=== PATIENT | female | born 1965 | race Caucasian/White ===

== ENCOUNTER → 2018-08-10 12:17 | Outpatient (CLI) | payer OTHER, MEDICAID, SELFPAY ==
--- NOTE | 2018-08-10 | DI.US.S_ITS ---
PROCEDURE: US PELVIC COMPLETE INDICATIONS: FIBROIDS TECHNIQUE: Real-time scanning was performed of the pelvic organs, with image documentation. Additional endovaginal scanning was necessary due to incomplete visualization of the adnexal and endometrial structures by transabdominal scanning. COMPARISON: None. FINDINGS: Transabdominal scanning: Limited scanning through the kidneys shows no hydronephrosis. No pathologic free abdominal or pelvic fluid. Endovaginal scanning: Uterus: Uterus is normal in size at 11.2 x 8.4 x 6.7 cm. The endometrial complex is not well visualized do to multiple uterine fibroids. Size Type Location Fibroid #1: 4.9 x 5.5 x 5.0 cm, intramural, anterior midline Fibroid #2: 1.3 x 1.1 x 1.8 cm, intramural, anterior midline Fibroid #3: 2.6 x 1 x 2.2 cm, intramural, posterior midline Ovaries: Ovaries are normal in size and echotexture. Right ovary measures 2.9 x 1.9 x 2.0 cm. Left ovary measures 2.6 x 1.1 x 1.0 cm. IMPRESSION: 1. Multiple uterine fibroids as described above. 2. Endometrium not well-seen. 3. Normal ovaries. Dictated by: Daniela Polanco M.D. on 08/10/2018 at 17:54 Approved by: Daniela Polanco M.D. on 08/10/2018 at 17:59
== END ==
PROVIDERS: Visit Provider Nurse Practitioner Family
DX: D25.1 Intramural leiomyoma of uterus (principal)
CPT/HCPCS: 76830; 76856

== ENCOUNTER → 2020-01-10 12:27 | Outpatient (CLI) | payer OTHER, MEDICAID, SELFPAY ==
--- NOTE | 2020-01-10 | DI.MG.S_ITS ---
BILATERAL DIGITAL DIAGNOSTIC MAMMOGRAM 3D/2D: 01/10/2020 CLINICAL: Breast cancer. Comparison is made to exam dated: 04/28/2019 mammogram - [facility]. There are scattered fibroglandular elements in both breasts. There are benign post operative findings in the left breast. No significant masses, calcifications, or other findings are seen in either breast. IMPRESSION: INCOMPLETE: NEEDS ADDITIONAL IMAGING EVALUATION There is no mammographic abnormality seen in the left breast to correspond with the pain, however, ultrasound of the area of pain is recommended. This exam was interpreted at Station ID: [id number]. NOTE: For mammograms, a report in lay terms will be sent to the patient. Approximately 15% of breast malignancies will not be visualized mammographically. In the management of a palpable breast mass, a negative mammogram must not discourage biopsy of a clinically suspicious lesion. Electronically Signed By: Marylu Linares M.D. lk/:01/15/2020 10:54:11 letter sent: Need Ultrasound ACR BI-RADS Category 0: Incomplete 3340F
== END ==
PROVIDERS: PCP Family Medicine; Referring Provider Family Medicine; Visit Provider Family Medicine
DX: R92.8 Other abnormal and inconclusive findings on diagnostic imaging of breast (principal); C50.912 Malignant neoplasm of unspecified site of left female breast
CPT/HCPCS: 77066; G0279

== ENCOUNTER → 2021-01-10 08:50 | Outpatient (CLI) | payer OTHER, MEDICAID, SELFPAY ==
--- NOTE | 2021-01-10 | DI.US.S_ITS ---
PROCEDURE: US PELVIC COMPLETE INDICATIONS: LEIOMYOMA TECHNIQUE: Real-time scanning was performed of the pelvic organs, with image documentation. Additional endovaginal scanning was necessary due to incomplete visualization of the adnexal and endometrial structures by transabdominal scanning. COMPARISON: [facility], CT, CT [place], 07/10/2019, 10:44. [facility], US, US PELVIC COMPLETE, 08/10/2018, 12:56. FINDINGS: Uterus: Uterus is enlarged in size at 9.4 x 6.4 x 4.6 cm. The endometrium is not well visualized. 3 intramural fibroids redemonstrated, not significantly changed with the largest measuring 3.8 x 4.5 x 3.9 cm compared to 4.9 x 5.5 Ovaries: Normal ovaries measuring 3.1 x 1.2 x 1.2 cm on the right and 2.7 x 1.4 x 1.1 cm on the left. No adnexal masses seen. Other: No pathologic free abdominal or pelvic fluid. IMPRESSION: No significant interval change in 3 intramural fibroids with the largest measuring up to 4.5 cm. Dictated by: Tex Garner [facility] Interpreted: Josef Kumar MD on 01/10/2021 at 9:52 Transcribed by: CATHERINE on 01/10/2021 at 9:56 Approved by: Josef Kumar M.D. on 01/12/2021 at 15:20
--- NOTE | 2021-01-10 | DI.MG.S_ITS ---
BILATERAL DIGITAL SCREENING MAMMOGRAM 3D/2D WITH CAD POST LUMPECTOMY: 01/10/2021 CLINICAL: Routine screening. Personal history of left breast cancer. Comparison is made to exams dated: 01/10/2020 mammogram - [facility], 04/28/2019 mammogram, 04/28/2019 mammogram, and 03/17/2018 mammogram - [facility]. The tissue of both breasts is heterogeneously dense. This may lower the sensitivity of mammography. Current study was also evaluated with a Computer Aided Detection (CAD) system. There are benign calcifications in both breasts. There also is a biopsy clip in the right breast. Additionally, there are benign post operative findings in the left breast. No significant masses, calcifications, or other findings are seen in either breast. There has been no significant interval change. IMPRESSION: BENIGN There is no mammographic evidence of malignancy. A 1 year screening mammogram is recommended. This exam was interpreted at Station ID: [id number]. NOTE: For mammograms, a report in lay terms will be sent to the patient. Approximately 15% of breast malignancies will not be visualized mammographically. In the management of a palpable breast mass, a negative mammogram must not discourage biopsy of a clinically suspicious lesion. Electronically Signed By: Dee Dee [email or web address]/vale:01/10/2021 12:35:56 letter sent: Normal Exam ACR BI-RADS Category 2: Benign Finding(s) 3342F
== END ==
PROVIDERS: PCP Family Medicine; Referring Provider Family Medicine; Visit Provider Family Medicine
DX: Z12.31 Encounter for screening mammogram for malignant neoplasm of breast (principal); D25.1 Intramural leiomyoma of uterus; Z85.3 Personal history of malignant neoplasm of breast
CPT/HCPCS: 76830; 76856; 77063; 77067

== ENCOUNTER → 2021-10-06 14:34 | Outpatient (CLI) | payer OTHER, MEDICAID, SELFPAY ==
[2021-10-09 23:10] LABS: CCP Antibodies IgG/IgA 2 units (0-19)
== END ==
PROVIDERS: PCP Family Medicine; Visit Provider Family Medicine
DX: M05.9 Rheumatoid arthritis with rheumatoid factor, unspecified (principal)
CPT/HCPCS: 86200

== ENCOUNTER 2023-08-10 13:00 | Outpatient (RCR) | payer OTHER, MEDICAID, SELFPAY ==
--- NOTE | 2023-03-25 17:12 | PT.OIE ---
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) Past Medical History (Last Updated 02/23/21 @ 21:12 by Tory Chaparro) Breast cancer CHI (closed head injury) H/O actinic keratosis H/O acute bronchitis HSV (herpes simplex virus) infection Migraines (~2018) PTSD (post-traumatic stress disorder) Puncture wound without foreign body of right forearm, initial encounter Past Surgical History History of tonsillectomy Visit Care Team Role Provider Type Chris Bergman MD Attending Provider Physician Family Provider Primary Care Provider Referring Provider Specialty: Family Practice Address: [address], [facility] Email: [email or web address] [facility] Initial Evaluation PT-OP-A Visit Information Start: 03/16/23 16:40 Freq: Status: Active Protocol: Document 03/25/23 12:53 SAK (Rec: 03/25/23 15:16 SAK [id number]) Out-Patient Physical Therapy Visit Information Visit Information Visit Type Initial Evaluation Visit Start Time 01:01 Visit Stop Time 14:31 Visit Number 1 Evaluation Information Evaluation Date 03/25/23 PT-OP-B Current Condition Start: 03/16/23 16:40 Freq: Status: Active Protocol: Document 03/25/23 12:53 SAK (Rec: 03/25/23 15:16 SAK [id number]) Current Condition History of Current Condition Onset Date 2019 Current Complaints swelling, decreased ROM History of Current Condition She had breast cancer (left breast), diagnosed 04/2019. Partial mastectomy at that time, cancer came back, had full mastectomy August 2022. 3 lymph nodes removed. Had radiation first time. No chemo. Immediately noticed swelling after surgery. In November stopped and got a bra and prosthesis, in time it took to drive to [place] had increased swelling and pain left breast. Has tried to wear Body glove shirt shirt , anywhere where there is pressure she gets ridge. 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 Can't lay on left side, has some body dysmorphia. Feeling puffy in breast, entire arm, upper back . If I mess with arm and upper back I suffer itchy and tingling, has numbness posterior left UE. Sometimes very warm and itchy, especially at night. Had 2 sessions of PT; given info for desensitiizaion and ROM. Doing some self massage. Is trying to work on densitization. Works in [employer], doesn't appear to increase her swelling but laying around does. Prior Treatments and Tests Mastectomy [facility] August 2022, [place] in 2019, radiation at [facility]. Future Testing and Treatments Planned Back to surgeon in August 2023 PT-OP-C Subjective Start: 03/16/23 16:40 Freq: Status: Active Protocol: Document 03/25/23 12:53 SAK (Rec: 03/25/23 16:44 [facility] [id number]) Patient Questionnaires Lymphedema Life Impact Score Lymphedema Score 38 OP-PT Pain Assessment Pain Assessment Grid Paper Pain Assessment Grid Completed Yes PT-OP-J Posture/Palpation/Skin Start: 03/16/23 16:40 Freq: Status: Active Protocol: Document 03/25/23 12:53 SAK (Rec: 03/25/23 16:57 [facility] [id number]) Palpation Assessment Location left axilla Palpation Details axillary cording incision Palpation Findings Soft Tissue Tightness,Trigger Point posterior upper arm Palpation Findings Edema Palpation Details numbness left lateral thorax Palpation Findings Edema,Tenderness PT-OP-K Range of Motion Start: 03/16/23 16:40 Freq: Status: Active Protocol: Document 03/25/23 12:53 SAK (Rec: 03/25/23 16:57 [facility] [id number]) Shoulder Goniometric Range of Motion Shoulder Left Active Shoulder ROM WFL No Flexion 145 Extension 25 Abduction 140 Horizontal Abduction 90 External Rotation at 0 degrees Abduction 50 Internal Rotation Behind Back (text) T8 Right Active Shoulder ROM WFL Yes PT-OP-N Lymphedema Start: 03/16/23 16:40 Freq: Status: Active Protocol: Document 03/25/23 12:53 SAK (Rec: 03/25/23 15:16 [facility] [id number]) Lymphedema Measurements Upper Extremity Circumference Measurements Left Affected MCP 17.5 cm Dorsum of Hand 18 cm Wrist 15.4 cm 5 cm From Wrist Crease 16.6 cm 10 cm From Wrist Crease 18.4 cm 15 cm From Wrist Crease 20.4 cm 20 cm From Wrist Crease 22.8 cm 25 cm From Wrist Crease 23.5 cm 30 cm From Wrist Crease 24.7 cm 35 cm From Wrist Crease 28.7 cm 40 cm From Wrist Crease 31.7 cm 45 cm From Wrist Crease 33.2 cm Right Affected MCP 17.8 cm Dorsum of Hand 18.4 cm Wrist 15.2 cm 5 cm From Wrist Crease 16.4 cm 10 cm From Wrist Crease 18.5 cm 15 cm From Wrist Crease 20.9 cm 20 cm From Wrist Crease 23 cm 25 cm From Wrist Crease 24.8 cm 30 cm From Wrist Crease 28.1 cm 35 cm From Wrist Crease 30.6 cm 40 cm From Wrist Crease 32.3 cm Elbow Joint 23 cm - subaxillary:93.4 incision line:96.1 PT-OP-Q Treatments Start: 03/16/23 16:40 Freq: Status: Active Protocol: Document 03/25/23 12:53 [facility] (Rec: 03/25/23 16:57 [facility] [id number]) Lymphedema Treatment Manual Lymphatic Drainage Location for left UE and thorax lymphedema Duration 30 Comments instruction in technique for self massage Lymphedema Wrapping Materials kinesiotape trial Other 2 fan strips: 1 base left supraclavicular, with strips into left proximal UE and 1 with base toward groin and strips along lateral thorax Sequential Lymphedema Exercises Comments issued handout instructed in open book, will need to issue handout next session Patient Education Lymphedema Pathology educated, posters used Lymphedema Prevention educated, issued HO Lymphedema Precautions educated, issued HO Compression Garments discussed and shown some options Self Manual Lymphatic Drainage educated, issued HO Sequential Lymphedema Exercises issued HO, instructed in open book Other Shown options for compression; compression bras (issued for trial at home), shown glove ( poor fit) and UE compression opetions. Encouraged patient to watch [facility] videos for further education in self- care for lymphedema; all aspects PT-OP-T Assessment and Plan Start: 03/16/23 16:40 Freq: Status: Active Protocol: Document 03/25/23 12:53 [facility] (Rec: 03/25/23 15:16 [facility] [id number]) Physical Therapy Assessment Rehab Potential Rehabilitation Potential Good Evaluation Complexity Number of Personal Factors/Comorbidities 1-2 Number of Body Systems Impaired 3 Clinical Presentation at Evaluation Evolving Impairments Impairments Edema,Pain,ROM,Soft Tissue Mobility Goals Four Impairment axillary cording left axilla Impairment affects left UE function Longterm Goal (LTG) eliminate axillary cording left axilla for improved left UE function and lymphatic flow LTG Duration 06/24/23 Three Impairment lymphedema life impact scale 38% Short Term Goal (STG) decrease lymphedema life impact scale to no greater than 25% STG Duration 05/06/23 Car Mover Goal (LTG) Decrease lymphedema life impact scale to no greater than 15% as measure of improve ability to self manage and improved quality of life LTG Duration 06/23/24 Two Impairment decreased ROM left shoulder Short Term Goal (STG) patient to be instructed in ROM ex for left UE STG Duration 04/30/23 Car Mover Goal (LTG) Left shoulder ROM WNL LTG Duration 06/24/23 One Impairment lymphedema left UE, lateral thorax and upper back Short Term Goal (STG) Patient to be instructed in all aspects of lymphedema care to include skin care, manual lymphatic drainage, lymphedema exercises and compression STG Duration 05/06/23 Car Mover Goal (LTG) decrease lymphedema to stable level (no increase or decrease in circumference greater than 1 cm over the course of 1 week), patient to be independent with all aspects of lymphedema care, and obtain appropriate compression garments LTG Duration 06/24/23 Assessment Summary Assessment Patient presents to PT after left partial mastectomy 2018, followed by full mastectomy with 2 lymph nodes removed per her report in August 2022. States she started to experience lymphedema pretty much immediately after the surgery in 2022, but has not received any treatment. 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 She does some range of motion exercises left UE. She has lymphedema in her left upper arm (reports extends into her forearm and hand at times) as well as lateral and posterior thoracic region but no increase in warmth. She has axillary cording in her left axilla. She has tried wearing compression shirt but felt it caused worsening of the edema and her skin is very sensitive to touch and pressure. Today's treatment consisted of instruction in all aspects of lymphedema care , abbreviated manual lymphatic drainage was applied, educational handouts issued regarding self lymphatic drainage, exercises, skin care, and compression and local and online resources. She was issued 2 trial compression bras to try at home. Kinesiotape trial done on lateral thorax and upper arm for edema reduction. POC was discussed and patient was in agreement Physical Therapy Plan Frequency and Duration Frequency of Treatment 20 visits Duration of treatment (weeks) 12 Plan of Care Start Date 03/25/23 Plan of Care End Date 06/24/23 Therapeutic Interventions Therapeutic Interventions Home Exercise Program, Lymphedema Management,Manual Therapy,Patient/Caregiver Education,Self-Care/Home Management,Soft Tissue Mobilization,Therapeutic Exercises Modalities Vasopneumatic Devices Next Visit Focus/Plan Next Note Type Treatment Note
--- NOTE | 2023-03-25 17:12 | PT.OPPOC ---
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) Visit Care Team Role Provider Type Chris Bergman MD Attending Provider Physician Family Provider Primary Care Provider Referring Provider Specialty: Family Practice Address: [address], [address] Email: [email or web address] Plan Of Care PT-OP-T Assessment and Plan Start: 03/16/23 16:40 Freq: Status: Active Protocol: Document 03/25/23 12:53 [facility]AK (Rec: 03/25/23 15:16 [facility] [id number]) Physical Therapy Assessment Rehab Potential Rehabilitation Potential Good Evaluation Complexity Number of Personal Factors/Comorbidities 1-2 Number of Body Systems Impaired 3 Clinical Presentation at Evaluation Evolving Impairments Impairments Edema,Pain,ROM,Soft Tissue Mobility Goals Four Impairment axillary cording left axilla Impairment affects left UE function Mandarin Teacher Goal (LTG) eliminate axillary cording left axilla for improved left UE function and lymphatic flow LTG Duration 06/24/23 Three Impairment lymphedema life impact scale 38% Short Term Goal (STG) decrease lymphedema life impact scale to no greater than 25% STG Duration 05/06/23 Mandarin Teacher Goal (LTG) Decrease lymphedema life impact scale to no greater than 15% as measure of improve ability to self manage and improved quality of life LTG Duration 06/23/24 Two Impairment decreased ROM left shoulder Short Term Goal (STG) patient to be instructed in ROM ex for left UE STG Duration 04/30/23 Mandarin Teacher Goal (LTG) Left shoulder ROM WNL LTG Duration 06/24/23 One Impairment lymphedema left UE, lateral thorax and upper back Short Term Goal (STG) Patient to be instructed in all aspects of lymphedema care to include skin care, manual lymphatic drainage, lymphedema exercises and compression STG Duration 05/06/23 Prison Goal (LTG) decrease lymphedema to stable level (no increase or decrease in circumference greater than 1 cm over the course of 1 week), patient to be independent with all aspects of lymphedema care, and obtain appropriate compression garments LTG Duration 06/24/23 Assessment Summary Assessment Patient presents to PT after left partial mastectomy 2018, followed by full mastectomy with 2 lymph nodes removed per her report in August 2022. States she started to experience lymphedema pretty much immediately after the surgery in 2022, but has not received any treatment. 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 She does some range of motion exercises left UE. She has lymphedema in her left upper arm (reports extends into her forearm and hand at times) as well as lateral and posterior thoracic region but no increase in warmth. She has axillary cording in her left axilla. She has tried wearing compression shirt but felt it caused worsening of the edema and her skin is very sensitive to touch and pressure. Today's treatment consisted of instruction in all aspects of lymphedema care , abbreviated manual lymphatic drainage was applied, educational handouts issued regarding self lymphatic drainage, exercises, skin care, and compression and local and online resources. She was issued 2 trial compression bras to try at home. Kinesiotape trial done on lateral thorax and upper arm for edema reduction. POC was discussed and patient was in agreement Physical Therapy Plan Frequency and Duration Frequency of Treatment 20 visits Duration of treatment (weeks) 12 Plan of Care Start Date 03/25/23 Plan of Care End Date 06/24/23 Therapeutic Interventions Therapeutic Interventions Home Exercise Program, Lymphedema Management,Manual Therapy,Patient/Caregiver Education,Self-Care/Home Management,Soft Tissue Mobilization,Therapeutic Exercises Modalities Vasopneumatic Devices Next Visit Focus/Plan Next Note Type Treatment Note Plan of Care Dates Plan of Care Start Date 03/25/23 Plan of Care End Date 06/24/23 Electronically Signed by: Lavonne Uriostegui, PT 03/25/23 [id number] If you are in agreement with this Plan of Care, please return a signed and dated copy. I have reviewed this Plan of Care and certify that the skilled therapy services above are required to meet the patient?s needs. Physician Signature Date Printed Name and Credentials Clinical Instructor Signature Printed Name and Credentials
--- NOTE | 2023-03-29 16:09 | PT.OTN ---
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) Physical Therapy Treatment Note PT-OP-A Visit Information Start: 03/16/23 16:40 Freq: Status: Active Protocol: Document 03/29/23 14:49 SAK (Rec: 03/29/23 16:07 [facility] [id number]) Out-Patient Physical Therapy Visit Information Visit Information Visit Type Treatment Note Visit Start Time 14:30 Visit Stop Time 15:55 Visit Number 2 Evaluation Information Evaluation Date 03/25/23 PT-OP-B Current Condition Start: 03/16/23 16:40 Freq: Status: Active Protocol: Document 03/29/23 14:49 SAK (Rec: 03/29/23 16:07 [facility] [id number]) Current Condition History of Current Condition Onset Date 2019 Current Complaints swelling, decreased ROM History of Current Condition She had breast cancer (left breast), diagnosed 04/2019. Partial mastectomy at that time, cancer came back, had full mastectomy August 2022. 3 lymph nodes removed. Had radiation first time. No chemo. Immediately noticed swelling after surgery. In November stopped and got a bra and prosthesis, in time it took to drive to [place] had increased swelling and pain left breast. Has tried to wear Body glove shirt shirt , anywhere where there is pressure she gets ridge. 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 Can't lay on left side, has some body dysmorphia. Feeling puffy in breast, entire arm, upper back . If I mess with arm and upper back I suffer itchy and tingling, has numbness posterior left UE. Sometimes very warm and itchy, especially at night. Had 2 sessions of PT; given info for desensitiizaion and ROM. Doing some self massage. Is trying to work on densitization. Works in [employer] and [employer], doesn't appear to increase her swelling but laying around does. Prior Treatments and Tests Mastectomy [facility] August 2022, [place] in 2019, radiation at [facility]. Future Testing and Treatments Planned Back to surgeon in August 2023 PT-OP-C Subjective Start: 03/16/23 16:40 Freq: Status: Active Protocol: Document 03/29/23 14:49 SAK (Rec: 03/29/23 16:07 [facility] [id number]) OP-PT Subjective Patient Comments Patient Comments Patient reports had difficulty tolerating compression bra due to nerve pain, and irritation. Kinesiotape ok. Wants to try bra again tonight . Receptive to compression bandaging today. PT-OP-J Posture/Palpation/Skin Start: 03/16/23 16:40 Freq: Status: Active Protocol: Document 03/25/23 12:53 SAK (Rec: 03/25/23 16:57 [facility] [id number]) Palpation Assessment Location left axilla Palpation Details axillary cording incision Palpation Findings Soft Tissue Tightness,Trigger Point posterior upper arm Palpation Findings Edema Palpation Details numbness left lateral thorax Palpation Findings Edema,Tenderness PT-OP-K Range of Motion Start: 03/16/23 16:40 Freq: Status: Active Protocol: Document 03/25/23 12:53 SAK (Rec: 03/25/23 16:57 [facility] [id number]) Shoulder Goniometric Range of Motion Shoulder Left Active Shoulder ROM WFL No Flexion 145 Extension 25 Abduction 140 Horizontal Abduction 90 External Rotation at 0 degrees Abduction 50 Internal Rotation Behind Back (text) T8 Right Active Shoulder ROM WFL Yes PT-OP-N Lymphedema Start: 03/16/23 16:40 Freq: Status: Active Protocol: Document 03/29/23 14:49 SAK (Rec: 03/29/23 16:07 [facility] [id number]) Lymphedema Measurements Upper Extremity Circumference Measurements Left Affected MCP 17.6 cm Dorsum of Hand 18.1 cm Wrist 15.2 cm 5 cm From Wrist Crease 16.7 cm 10 cm From Wrist Crease 18.7 cm 15 cm From Wrist Crease 21.4 cm 20 cm From Wrist Crease 23 cm 25 cm From Wrist Crease 24.4 cm 30 cm From Wrist Crease 28 cm 35 cm From Wrist Crease 28.7 cm 40 cm From Wrist Crease 30 cm 45 cm From Wrist Crease 33.2 cm Elbow Joint 23.7 cm Right Affected - 92.7 95.2 PT-OP-Q Treatments Start: 03/16/23 16:40 Freq: Status: Active Protocol: Document 03/29/23 14:49 SAK (Rec: 03/29/23 16:07 [facility] [id number]) Therapeutic Exercises Sitting Exercises pulleys Sitting Exercise Name flexion, scaption Reps/Minutes 10x Lymphedema Treatment Manual Lymphatic Drainage Location for left UE and thorax lymphedema Duration 30 Comments instruction in technique for self massage Lymphedema Wrapping Body Location left UE Materials sizes F Tricofix, Artiflex (2 rolls), Comprilan (6,8,10) Other Cetaphil lotion applied prior to bandaging Sequential Lymphedema Exercises Comments performed per handout, encouraged ex while wearing compression Patient Education Lymphedema Prevention reviewed Self Manual Lymphatic Drainage reviewed Sequential Lymphedema Exercises reviewed PT-OP-T Assessment and Plan Start: 03/16/23 16:40 Freq: Status: Active Protocol: Document 03/29/23 14:49 [facility] (Rec: 03/29/23 16:07 [facility] [id number]) Physical Therapy Assessment Impairments Impairments Edema,Pain,ROM,Soft Tissue Mobility Goals Four Impairment axillary cording left axilla Impairment affects left UE function Radiologic Technologist Chief Goal (LTG) eliminate axillary cording left axilla for improved left UE function and lymphatic flow LTG Duration 06/24/23 Three Impairment lymphedema life impact scale 38% Short Term Goal (STG) decrease lymphedema life impact scale to no greater than 25% STG Duration 05/06/23 Snf Goal (LTG) Decrease lymphedema life impact scale to no greater than 15% as measure of improve ability to self manage and improved quality of life LTG Duration 06/23/24 Two Impairment decreased ROM left shoulder Short Term Goal (STG) patient to be instructed in ROM ex for left UE STG Duration 04/30/23 Snf Goal (LTG) Left shoulder ROM WNL LTG Duration 06/24/23 One Impairment lymphedema left UE, lateral thorax and upper back Short Term Goal (STG) Patient to be instructed in all aspects of lymphedema care to include skin care, manual lymphatic drainage, lymphedema exercises and compression STG Duration 05/06/23 Snf Goal (LTG) decrease lymphedema to stable level (no increase or decrease in circumference greater than 1 cm over the course of 1 week), patient to be independent with all aspects of lymphedema care, and obtain appropriate compression garments LTG Duration 06/24/23 Assessment Summary Assessment Patient compliant to self MLD, did not look further into materials issued. Noted reduction in edema following MLD today, discussion of need to wear compression to maintain any gains. Bandaging applied to patient left UE. Physical Therapy Plan Frequency and Duration Frequency of Treatment 20 visits Duration of treatment (weeks) 12 Plan of Care Start Date 03/25/23 Plan of Care End Date 06/24/23 Therapeutic Interventions Therapeutic Interventions Home Exercise Program, Lymphedema Management,Manual Therapy,Patient/Caregiver Education,Self-Care/Home Management,Soft Tissue Mobilization,Therapeutic Exercises Modalities Vasopneumatic Devices Next Visit Focus/Plan Next Note Type Treatment Note Next Visit Plan ASsess response to today's treatment, continue CLT including skin care, bandaging , exercise, and compression. Patient to have looked at compression options online tonight if possible for further discussion.
--- NOTE | 2023-03-30 16:28 | PT.OTN ---
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) Physical Therapy Treatment Note PT-OP-A Visit Information Start: 03/16/23 16:40 Freq: Status: Active Protocol: Document 03/30/23 16:21 SAK (Rec: 03/30/23 16:28 [facility] [id number]) Out-Patient Physical Therapy Visit Information Visit Information Visit Type Treatment Note Visit Start Time 13:00 Visit Stop Time 13:55 Visit Number 3 PT-OP-B Current Condition Start: 03/16/23 16:40 Freq: Status: Active Protocol: Document 03/29/23 14:49 SAK (Rec: 03/29/23 16:07 [facility] [id number]) Current Condition History of Current Condition Onset Date 2019 Current Complaints swelling, decreased ROM History of Current Condition She had breast cancer (left breast), diagnosed 04/2019. Partial mastectomy at that time, cancer came back, had full mastectomy August 2022. 3 lymph nodes removed. Had radiation first time. No chemo. Immediately noticed swelling after surgery. In November stopped and got a bra and prosthesis, in time it took to drive to [place] had increased swelling and pain left breast. Has tried to wear Body glove shirt shirt , anywhere where there is pressure she gets ridge. 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 Can't lay on left side, has some body dysmorphia. Feeling puffy in breast, entire arm, upper back . If I mess with arm and upper back I suffer itchy and tingling, has numbness posterior left UE. Sometimes very warm and itchy, especially at night. Had 2 sessions of PT; given info for desensitiizaion and ROM. Doing some self massage. Is trying to work on densitization. Works in [employer] and [employer], doesn't appear to increase her swelling but laying around does. Prior Treatments and Tests Mastectomy Wm Freeman August 2022, [place] in 2019, radiation at [facility]. Future Testing and Treatments Planned Back to surgeon in August 2023 PT-OP-C Subjective Start: 03/16/23 16:40 Freq: Status: Active Protocol: Document 03/29/23 14:49 SAK (Rec: 03/29/23 16:07 [facility] [id number]) OP-PT Subjective Patient Comments Patient Comments Patient reports had difficulty tolerating compression bra due to nerve pain, and irritation. Kinesiotape ok. Wants to try bra again tonight . Receptive to compression bandaging today. PT-OP-J Posture/Palpation/Skin Start: 03/16/23 16:40 Freq: Status: Active Protocol: Document 03/25/23 12:53 SAK (Rec: 03/25/23 16:57 [facility] [id number]) Palpation Assessment Location left axilla Palpation Details axillary cording incision Palpation Findings Soft Tissue Tightness,Trigger Point posterior upper arm Palpation Findings Edema Palpation Details numbness left lateral thorax Palpation Findings Edema,Tenderness PT-OP-K Range of Motion Start: 03/16/23 16:40 Freq: Status: Active Protocol: Document 03/25/23 12:53 SAK (Rec: 03/25/23 16:57 [facility] [id number]) Shoulder Goniometric Range of Motion Shoulder Left Active Shoulder ROM WFL No Flexion 145 Extension 25 Abduction 140 Horizontal Abduction 90 External Rotation at 0 degrees Abduction 50 Internal Rotation Behind Back (text) T8 Right Active Shoulder ROM WFL Yes PT-OP-N Lymphedema Start: 03/16/23 16:40 Freq: Status: Active Protocol: Document 03/29/23 14:49 SAK (Rec: 03/29/23 16:07 [facility] [id number]) Lymphedema Measurements Upper Extremity Circumference Measurements Left Affected MCP 17.6 cm Dorsum of Hand 18.1 cm Wrist 15.2 cm 5 cm From Wrist Crease 16.7 cm 10 cm From Wrist Crease 18.7 cm 15 cm From Wrist Crease 21.4 cm 20 cm From Wrist Crease 23 cm 25 cm From Wrist Crease 24.4 cm 30 cm From Wrist Crease 28 cm 35 cm From Wrist Crease 28.7 cm 40 cm From Wrist Crease 30 cm 45 cm From Wrist Crease 33.2 cm Elbow Joint 23.7 cm Right Affected - 92.7 95.2 PT-OP-Q Treatments Start: 03/16/23 16:40 Freq: Status: Active Protocol: Document 03/30/23 16:21 SAK (Rec: 03/30/23 16:28 [facility] [id number]) Lymphedema Treatment Manual Lymphatic Drainage Location for left UE and thorax lymphedema Duration 30 Comments instruction in technique for self massage Lymphedema Wrapping Body Location left UE Materials sizes F Tricofix, Artiflex (2 rolls), Comprilan (6,8,10) Other Cetaphil lotion applied prior to bandaging Sequential Lymphedema Exercises Comments Biodex L1 seat 7 x 5 min to facilitate lymphatic flow after MLD and compression bandaging Other Other no further treatment today, patient late and was only able to be seen 55 min PT-OP-T Assessment and Plan Start: 03/16/23 16:40 Freq: Status: Active Protocol: Document 03/30/23 16:21 [facility] (Rec: 03/30/23 16:28 [facility] [id number]) Physical Therapy Assessment Impairments Impairments Edema,Pain,ROM,Soft Tissue Mobility Goals Four Impairment axillary cording left axilla Impairment affects left UE function Credit Portfolio Manager Goal (LTG) eliminate axillary cording left axilla for improved left UE function and lymphatic flow LTG Duration 06/24/23 Three Impairment lymphedema life impact scale 38% Short Term Goal (STG) decrease lymphedema life impact scale to no greater than 25% STG Duration 05/06/23 Group Home Goal (LTG) Decrease lymphedema life impact scale to no greater than 15% as measure of improve ability to self manage and improved quality of life LTG Duration 06/23/24 Two Impairment decreased ROM left shoulder Short Term Goal (STG) patient to be instructed in ROM ex for left UE STG Duration 04/30/23 Group Home Goal (LTG) Left shoulder ROM WNL LTG Duration 06/24/23 One Impairment lymphedema left UE, lateral thorax and upper back Short Term Goal (STG) Patient to be instructed in all aspects of lymphedema care to include skin care, manual lymphatic drainage, lymphedema exercises and compression STG Duration 05/06/23 Credit Portfolio Manager Goal (LTG) decrease lymphedema to stable level (no increase or decrease in circumference greater than 1 cm over the course of 1 week), patient to be independent with all aspects of lymphedema care, and obtain appropriate compression garments LTG Duration 06/24/23 Assessment Summary Assessment Patient only able to tolerate bandaging until 2 am, had wrong time for today's appointment so treatment limited. Patient experiences nausea with MLD but wants to continue due to benefit, endorses drinking water after treatment. Has felt too overwhelmed to look at compression garments, watch videos for education; encouraged her to use especially for self-bandaging until sees PT again. Stressed importance of 23 hrs/day wearing, do exercises and be active while wearing compression. Circumferential measurements today smaller in hand, larger in forearm and upper arm. Feel she may also benefit from use of a pneumatic sequential pump in the home. Physical Therapy Plan Frequency and Duration Frequency of Treatment 20 visits Duration of treatment (weeks) 12 Plan of Care Start Date 03/25/23 Plan of Care End Date 06/24/23 Therapeutic Interventions Therapeutic Interventions Home Exercise Program, Lymphedema Management,Manual Therapy,Patient/Caregiver Education,Self-Care/Home Management,Soft Tissue Mobilization,Therapeutic Exercises Modalities Vasopneumatic Devices Next Visit Focus/Plan Next Note Type Treatment Note Next Visit Plan ASsess response to today's treatment, continue CLT including skin care, bandaging , exercise, and compression. Discuss compression options
--- NOTE | 2023-04-06 13:28 | PT.OTN ---
Current Diagnoses Postmastectomy lymphedema syndrome (04/06/23) Physical Therapy Treatment Note PT-OP-A Visit Information Start: 03/16/23 16:40 Freq: Status: Active Protocol: Document 04/06/23 10:29 [facility] (Rec: 04/06/23 11:11 [facility] [id number]) Out-Patient Physical Therapy Visit Information Visit Information Visit Type Treatment Note Visit Start Time 10:29 Visit Stop Time 11:58 Visit Number 4 Evaluation Information Evaluation Date 03/25/23 PT-OP-B Current Condition Start: 03/16/23 16:40 Freq: Status: Active Protocol: Document 04/06/23 10:29 SAK (Rec: 04/06/23 11:11 [facility] [id number]) Current Condition History of Current Condition Onset Date 2019 Current Complaints swelling, decreased ROM History of Current Condition She had breast cancer (left breast), diagnosed 04/2019. Partial mastectomy at that time, cancer came back, had full mastectomy August 2022. 3 lymph nodes removed. Had radiation first time. No chemo. Immediately noticed swelling after surgery. In November stopped and got a bra and prosthesis, in time it took to drive to [place] had increased swelling and pain left breast. Has tried to wear Body glove shirt shirt , anywhere where there is pressure she gets ridge. 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 Can't lay on left side, has some body dysmorphia. Feeling puffy in breast, entire arm, upper back . If I mess with arm and upper back I suffer itchy and tingling, has numbness posterior left UE. Sometimes very warm and itchy, especially at night. Had 2 sessions of PT; given info for desensitiizaion and ROM. Doing some self massage. Is trying to work on densitization. Works in [employer] and [employer], doesn't appear to increase her swelling but laying around does. Prior Treatments and Tests Mastectomy Wm Freeman August 2022, [place] in 2019, radiation at [facility]. Future Testing and Treatments Planned Back to surgeon in August 2023 PT-OP-C Subjective Start: 03/16/23 16:40 Freq: Status: Active Protocol: Document 04/06/23 10:29 [facility] (Rec: 04/06/23 11:11 [facility] [id number]) OP-PT Subjective Patient Comments Patient Comments Bandaging is hard. REports fluctuating swelling. PT-OP-J Posture/Palpation/Skin Start: 03/16/23 16:40 Freq: Status: Active Protocol: Document 03/25/23 12:53 [facility]AK (Rec: 03/25/23 16:57 [facility] [id number]) Palpation Assessment Location left axilla Palpation Details axillary cording incision Palpation Findings Soft Tissue Tightness,Trigger Point posterior upper arm Palpation Findings Edema Palpation Details numbness left lateral thorax Palpation Findings Edema,Tenderness PT-OP-K Range of Motion Start: 03/16/23 16:40 Freq: Status: Active Protocol: Document 03/25/23 12:53 SAK (Rec: 03/25/23 16:57 [facility] [id number]) Shoulder Goniometric Range of Motion Shoulder Left Active Shoulder ROM WFL No Flexion 145 Extension 25 Abduction 140 Horizontal Abduction 90 External Rotation at 0 degrees Abduction 50 Internal Rotation Behind Back (text) T8 Right Active Shoulder ROM WFL Yes PT-OP-N Lymphedema Start: 03/16/23 16:40 Freq: Status: Active Protocol: Document 04/06/23 10:29 [facility] (Rec: 04/06/23 11:11 [facility] [id number]) Lymphedema Measurements Upper Extremity Circumference Measurements Left Affected MCP 17.4 cm Dorsum of Hand 18.3 cm Wrist 14.8 cm 5 cm From Wrist Crease 16.1 cm 10 cm From Wrist Crease 18.7 cm 15 cm From Wrist Crease 21 cm 20 cm From Wrist Crease 22.7 cm 25 cm From Wrist Crease 24 cm 30 cm From Wrist Crease 27.4 cm 35 cm From Wrist Crease 31 cm 40 cm From Wrist Crease 32.8 cm Elbow Joint 22.8 cm Right Affected MCP 17.8 cm Dorsum of Hand 19 cm Wrist 15.3 cm 5 cm From Wrist Crease 16.7 cm 10 cm From Wrist Crease 18.8 cm 15 cm From Wrist Crease 21 cm 20 cm From Wrist Crease 23 cm 25 cm From Wrist Crease 24 cm 30 cm From Wrist Crease 28.8 cm 35 cm From Wrist Crease 29.8 cm 40 cm From Wrist Crease 32.3 cm Elbow Joint 23.4 cm - 90.5 94.2 PT-OP-Q Treatments Start: 03/16/23 16:40 Freq: Status: Active Protocol: Document 04/06/23 10:29 [facility] (Rec: 04/06/23 11:11 [facility] [id number]) Lymphedema Treatment Manual Lymphatic Drainage Location for left UE and thorax lymphedema Duration 30 Comments continue education for self MLD, routing of fluid Lymphedema Wrapping Body Location left UE Materials sizes F Tricofix, Artiflex (2 rolls), Comprilan (6,8,10) Other Cetaphil lotion applied prior to bandaging Sequential Lymphedema Exercises Comments not available Other Other discussed compression options including libero style for improved upper arm coverage. Use of website to show compression options. Loaner swell spot for chest and lateral trunk issued, patient continues trial of compression bra. PT-OP-T Assessment and Plan Start: 03/16/23 16:40 Freq: Status: Active Protocol: Document 04/06/23 10:29 [facility] (Rec: 04/06/23 11:11 [facility] [id number]) Physical Therapy Assessment Impairments Impairments Edema,Pain,ROM,Soft Tissue Mobility Goals Four Impairment axillary cording left axilla Impairment affects left UE function Intermediate Goal (LTG) eliminate axillary cording left axilla for improved left UE function and lymphatic flow LTG Duration 06/24/23 Three Impairment lymphedema life impact scale 38% Short Term Goal (STG) decrease lymphedema life impact scale to no greater than 25% STG Duration 05/06/23 Eligibility Specialist Goal (LTG) Decrease lymphedema life impact scale to no greater than 15% as measure of improve ability to self manage and improved quality of life LTG Duration 06/23/24 Two Impairment decreased ROM left shoulder Short Term Goal (STG) patient to be instructed in ROM ex for left UE STG Duration 04/30/23 Intermediate Goal (LTG) Left shoulder ROM WNL LTG Duration 06/24/23 One Impairment lymphedema left UE, lateral thorax and upper back Short Term Goal (STG) Patient to be instructed in all aspects of lymphedema care to include skin care, manual lymphatic drainage, lymphedema exercises and compression STG Duration 05/06/23 Intermediate Goal (LTG) decrease lymphedema to stable level (no increase or decrease in circumference greater than 1 cm over the course of 1 week), patient to be independent with all aspects of lymphedema care, and obtain appropriate compression garments LTG Duration 06/24/23 Assessment Summary Assessment Patient doing fair with self- bandaging her left UE, noted decreased circumference in hand and forearm, increased upper arm, dec subaxillary and nipple line. Highly responsive to MLD and patient is very compliant to self massage, exercise, skin care, and compression bandaging. Physical Therapy Plan Frequency and Duration Frequency of Treatment 20 visits Duration of treatment (weeks) 12 Plan of Care Start Date 03/25/23 Plan of Care End Date 06/24/23 Therapeutic Interventions Therapeutic Interventions Home Exercise Program, Lymphedema Management,Manual Therapy,Patient/Caregiver Education,Self-Care/Home Management,Soft Tissue Mobilization,Therapeutic Exercises Modalities Vasopneumatic Devices Next Visit Focus/Plan Next Note Type Treatment Note Next Visit Plan Continue CLT. Assess response to swell spot loaner, further discuss compression garment needs and request prescription from physician if measurements stabilizing. Patient to check insurance coverage for garments.
--- NOTE | 2023-04-13 14:37 | PT.OTN ---
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) Physical Therapy Treatment Note PT-OP-A Visit Information Start: 03/16/23 16:40 Freq: Status: Active Protocol: Document 04/13/23 13:06 [facility] (Rec: 04/13/23 13:37 [facility] [id number]) Out-Patient Physical Therapy Visit Information Visit Information Visit Type Treatment Note Visit Start Time 13:00 Visit Stop Time 14:29 Visit Number 5 Evaluation Information Evaluation Date 03/25/23 PT-OP-B Current Condition Start: 03/16/23 16:40 Freq: Status: Active Protocol: Document 04/13/23 13:06 [facility] (Rec: 04/13/23 13:37 [facility] [id number]) Current Condition History of Current Condition Onset Date 2019 Current Complaints swelling, decreased ROM History of Current Condition She had breast cancer (left breast), diagnosed 04/2019. Partial mastectomy at that time, cancer came back, had full mastectomy August 2022. 3 lymph nodes removed. Had radiation first time. No chemo. Immediately noticed swelling after surgery. In November stopped and got a bra and prosthesis, in time it took to drive to [place] had increased swelling and pain left breast. Has tried to wear Body glove shirt shirt , anywhere where there is pressure she gets ridge. 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 Can't lay on left side, has some body dysmorphia. Feeling puffy in breast, entire arm, upper back . If I mess with arm and upper back I suffer itchy and tingling, has numbness posterior left UE. Sometimes very warm and itchy, especially at night. Had 2 sessions of PT; given info for desensitiizaion and ROM. Doing some self massage. Is trying to work on densitization. Works in [employer], doesn't appear to increase her swelling but laying around does. Prior Treatments and Tests Mastectomy [facility] August 2022, [place] in 2019, radiation at [facility]. Future Testing and Treatments Planned Back to surgeon in August 2023 PT-OP-C Subjective Start: 03/16/23 16:40 Freq: Status: Active Protocol: Document 04/13/23 13:06 [facility] (Rec: 04/13/23 13:37 [facility] [id number]) OP-PT Subjective Patient Comments Patient Comments Has been using swell spot different ways. Most problematic is under arm and back, has a difficult time especially draining her back. [place] relief when PT drained through her ribs. Dull deep pain persists left arm. PT-OP-J Posture/Palpation/Skin Start: 03/16/23 16:40 Freq: Status: Active Protocol: Document 03/25/23 12:53 [facility] (Rec: 03/25/23 16:57 [facility] [id number]) Palpation Assessment Location left axilla Palpation Details axillary cording incision Palpation Findings Soft Tissue Tightness,Trigger Point posterior upper arm Palpation Findings Edema Palpation Details numbness left lateral thorax Palpation Findings Edema,Tenderness PT-OP-K Range of Motion Start: 03/16/23 16:40 Freq: Status: Active Protocol: Document 03/25/23 12:53 [facility] (Rec: 03/25/23 16:57 [facility] [id number]) Shoulder Goniometric Range of Motion Shoulder Left Active Shoulder ROM WFL No Flexion 145 Extension 25 Abduction 140 Horizontal Abduction 90 External Rotation at 0 degrees Abduction 50 Internal Rotation Behind Back (text) T8 Right Active Shoulder ROM WFL Yes PT-OP-N Lymphedema Start: 03/16/23 16:40 Freq: Status: Active Protocol: Document 04/13/23 13:06 [facility] (Rec: 04/13/23 13:37 [facility] [id number]) Lymphedema Measurements Upper Extremity Circumference Measurements Left Affected MCP 17.4 cm Dorsum of Hand 18.1 cm Wrist 14.5 cm 5 cm From Wrist Crease 16 cm 10 cm From Wrist Crease 18.1 cm 15 cm From Wrist Crease 20.9 cm 20 cm From Wrist Crease 22.7 cm 25 cm From Wrist Crease 24.2 cm 30 cm From Wrist Crease 27.6 cm 35 cm From Wrist Crease 30.8 cm 40 cm From Wrist Crease 32.8 cm Elbow Joint 23.4 cm Right Affected - 93 95.9 PT-OP-Q Treatments Start: 03/16/23 16:40 Freq: Status: Active Protocol: Document 04/13/23 13:06 [facility] (Rec: 04/13/23 14:37 [facility] [id number]) Lymphedema Treatment Manual Lymphatic Drainage Location for left UE and thorax lymphedema Duration 30 Comments continue education for self MLD, routing of fluid Lymphedema Wrapping Body Location left UE Materials sizes F Tricofix, Artiflex (2 rolls), Comprilan (6,8,10) Other Cetaphil lotion applied prior to bandaging Patient Education Lymphedema Prevention reviewed Self Manual Lymphatic Drainage reviewed Sequential Lymphedema Exercises reviewed Other Other Further discussion of compression options with decisions for best garments made as indicated below. PT-OP-T Assessment and Plan Start: 03/16/23 16:40 Freq: Status: Active Protocol: Document 04/13/23 13:06 [facility] (Rec: 04/13/23 13:37 [facility] [id number]) Physical Therapy Assessment Impairments Impairments Edema,Pain,ROM,Soft Tissue Mobility Goals Four Impairment axillary cording left axilla Impairment affects left UE function Neonatal Critical Care Nurse Goal (LTG) eliminate axillary cording left axilla for improved left UE function and lymphatic flow LTG Duration 06/24/23 Three Impairment lymphedema life impact scale 38% Short Term Goal (STG) decrease lymphedema life impact scale to no greater than 25% STG Duration 05/06/23 Neonatal Critical Care Nurse Goal (LTG) Decrease lymphedema life impact scale to no greater than 15% as measure of improve ability to self manage and improved quality of life LTG Duration 06/23/24 Two Impairment decreased ROM left shoulder Short Term Goal (STG) patient to be instructed in ROM ex for left UE STG Duration 04/30/23 Retirement Goal (LTG) Left shoulder ROM WNL LTG Duration 06/24/23 One Impairment lymphedema left UE, lateral thorax and upper back Short Term Goal (STG) Patient to be instructed in all aspects of lymphedema care to include skin care, manual lymphatic drainage, lymphedema exercises and compression STG Duration 05/06/23 Retirement Goal (LTG) decrease lymphedema to stable level (no increase or decrease in circumference greater than 1 cm over the course of 1 week), patient to be independent with all aspects of lymphedema care, and obtain appropriate compression garments LTG Duration 06/24/23 Assessment Summary Assessment DIscussed compression options with patient. REcommend gauntlet, arm sleeve, compression bra and swell spot ; 2 sets to address lymphedema in hand, chest, subaxillary region, and trunk. Patient to make appointment for fitting [facility]. Also feel patient would benefit highly from the use of a sequential pneumatic pump for her lymphedema in hand, arm, subaxillary, chest, and trunk. It is difficult for her to reach her lateral and posterior trunk for self- massage and a pump would help significantly. She is highly compliant to elevation, skin care, lymphatic exercise, lymphatic massage, and compression bandaging. Physical Therapy Plan Frequency and Duration Frequency of Treatment 20 visits Duration of treatment (weeks) 12 Plan of Care Start Date 03/25/23 Plan of Care End Date 06/24/23 Therapeutic Interventions Therapeutic Interventions Home Exercise Program, Lymphedema Management,Manual Therapy,Patient/Caregiver Education,Self-Care/Home Management,Soft Tissue Mobilization,Therapeutic Exercises Modalities Vasopneumatic Devices Next Visit Focus/Plan Next Note Type Treatment Note Next Visit Plan Continue CLT. PT to complete paperwork to request compression garments. Request order for sequential pneumatic pump after complete 30+ days of conservative care for her lymphedema.
--- NOTE | 2023-04-25 13:17 | PT.OPPN ---
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) Physical Therapy Progress Note PT-OP-A Visit Information Start: 03/16/23 16:40 Freq: Status: Active Protocol: Document 04/25/23 13:11 [facility] (Rec: 04/25/23 13:17 [facility] [id number]) Out-Patient Physical Therapy Visit Information Visit Information Visit Type Progress Note Evaluation Information Evaluation Date 03/25/23 PT-OP-B Current Condition Start: 03/16/23 16:40 Freq: Status: Active Protocol: Document 04/25/23 13:11 [facility] (Rec: 04/25/23 13:17 [facility] [id number]) Current Condition History of Current Condition Onset Date 2019 Current Complaints swelling, decreased ROM History of Current Condition She had breast cancer (left breast), diagnosed 04/2019. Partial mastectomy at that time, cancer came back, had full mastectomy August 2022. 3 lymph nodes removed. Had radiation first time. No chemo. Immediately noticed swelling after surgery. In November stopped and got a bra and prosthesis, in time it took to drive to [place] had increased swelling and pain left breast. Has tried to wear Body glove shirt shirt , anywhere where there is pressure she gets ridge. 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 Can't lay on left side, has some body dysmorphia. Feeling puffy in breast, entire arm, upper back . If I mess with arm and upper back I suffer itchy and tingling, has numbness posterior left UE. Sometimes very warm and itchy, especially at night. Had 2 sessions of PT; given info for desensitiizaion and ROM. Doing some self massage. Is trying to work on densitization. Works in [employer], doesn't appear to increase her swelling but laying around does. Prior Treatments and Tests Mastectomy Wm Freeman August 2022, [place] in 2019, radiation at [facility]. Future Testing and Treatments Planned Back to surgeon in August 2023 Treatment Goals Patient/Caregiver Goals decrease lymphedema and return to prior functional use of left UE PT-OP-C Subjective Start: 03/16/23 16:40 Freq: Status: Active Protocol: Document 04/13/23 13:06 [facility] (Rec: 04/13/23 13:37 [facility] [id number]) OP-PT Subjective Patient Comments Patient Comments Has been using swell spot different ways. Most problematic is under arm and back, has a difficult time especially draining her back. [place] relief when PT drained through her ribs. Dull deep pain persists left arm. PT-OP-J Posture/Palpation/Skin Start: 03/16/23 16:40 Freq: Status: Active Protocol: Document 03/25/23 12:53 [facility] (Rec: 03/25/23 16:57 [facility] [id number]) Palpation Assessment Location left axilla Palpation Details axillary cording incision Palpation Findings Soft Tissue Tightness,Trigger Point posterior upper arm Palpation Findings Edema Palpation Details numbness left lateral thorax Palpation Findings Edema,Tenderness PT-OP-K Range of Motion Start: 03/16/23 16:40 Freq: Status: Active Protocol: Document 03/25/23 12:53 [facility] (Rec: 03/25/23 16:57 [facility] [id number]) Shoulder Goniometric Range of Motion Shoulder Measured in Degrees Left Active Shoulder ROM WFL No Flexion 145 Extension 25 Abduction 140 Horizontal Abduction 90 External Rotation at 0 degrees Abduction 50 Internal Rotation Behind Back (text) T8 Right Active Shoulder ROM WFL Yes PT-OP-N Lymphedema Start: 03/16/23 16:40 Freq: Status: Active Protocol: Document 04/25/23 13:11 [facility] (Rec: 04/25/23 13:17 [facility] [id number]) Lymphedema Measurements Upper Extremity Circumference Measurements Left Affected MCP 17.4 cm Dorsum of Hand 18.1 cm Wrist 14.5 cm 5 cm From Wrist Crease 16 cm 10 cm From Wrist Crease 18.1 cm 15 cm From Wrist Crease 20.9 cm 20 cm From Wrist Crease 22.7 cm 25 cm From Wrist Crease 24.2 cm 30 cm From Wrist Crease 27.6 cm 35 cm From Wrist Crease 30.8 cm 40 cm From Wrist Crease 32.8 cm Elbow Joint 23.4 cm - subaxillary:93cm nipple line: 95.9 cm Right Affected - subaxillary:93cm nipple line: 95.9 PT-OP-T Assessment and Plan Start: 03/16/23 16:40 Freq: Status: Active Protocol: Document 04/25/23 13:11 [facility] (Rec: 04/25/23 13:17 [facility] [id number]) Physical Therapy Assessment Rehab Potential Rehabilitation Potential Good Evaluation Complexity Number of Personal Factors/Comorbidities 1-2 Number of Body Systems Impaired 3 Clinical Presentation at Evaluation Evolving Impairments Impairments Edema,Pain,ROM,Soft Tissue Mobility Goals Four Impairment axillary cording left axilla Impairment affects left UE function Assisted Goal (LTG) eliminate axillary cording left axilla for improved left UE function and lymphatic flow LTG Duration 06/24/23 Three Impairment lymphedema life impact scale 38% Short Term Goal (STG) decrease lymphedema life impact scale to no greater than 25% STG Duration 05/06/23 Drafter (Cad) Electronic Goal (LTG) Decrease lymphedema life impact scale to no greater than 15% as measure of improve ability to self manage and improved quality of life LTG Duration 06/23/24 Two Impairment decreased ROM left shoulder Short Term Goal (STG) patient to be instructed in ROM ex for left UE STG Duration 04/30/23 Drafter (Cad) Electronic Goal (LTG) Left shoulder ROM WNL LTG Duration 06/24/23 One Impairment lymphedema left UE, lateral thorax and upper back Short Term Goal (STG) Patient to be instructed in all aspects of lymphedema care to include skin care, manual lymphatic drainage, lymphedema exercises and compression STG Duration 05/06/23 Assisted Goal (LTG) decrease lymphedema to stable level (no increase or decrease in circumference greater than 1 cm over the course of 1 week), patient to be independent with all aspects of lymphedema care, and obtain appropriate compression garments LTG Duration 06/24/23 Progress Towards Goals Progress Towards Goals Progressing Toward Goals Assessment Summary Assessment Patient has completed more than 30 days of conservative therapy including skin care, elevation, manual lymphatic drainage, lymphedema exercises , and compression. She is highly compliant to her self care program and is highly motivated. Despite this she has been struggling to manage her lymphedema in left UE, thorax and chest. Feel she would highly benefit from the use of a sequential pneumatic pump in the home to help her manage her lymphedema and prevent complications such as cellulitis. Physical Therapy Plan Next Visit Focus/Plan Next Note Type Treatment Note Next Visit Plan Continue complete decongestive therapy with further compression problem-solving as needed, gentle progression of ther ex, continued MLDE. Assist patient with obtaining a sequential pneumatic pump
--- NOTE | 2023-05-25 11:49 | PT.OTN ---
Current Diagnoses Postmastectomy lymphedema syndrome (05/25/23) Physical Therapy Treatment Note PT-OP-A Visit Information Start: 03/16/23 16:40 Freq: Status: Active Protocol: Document 05/25/23 10:35 [facility] (Rec: 05/25/23 11:49 [facility] [id number]) Out-Patient Physical Therapy Visit Information Visit Information Visit Type Treatment Note Visit Start Time 10:35 Visit Stop Time 12:00 Visit Number 6 Evaluation Information Evaluation Date 03/25/23 PT-OP-B Current Condition Start: 03/16/23 16:40 Freq: Status: Active Protocol: Document 05/25/23 10:35 [facility] (Rec: 05/25/23 11:49 [facility] [id number]) Current Condition History of Current Condition Onset Date 2019 Current Complaints swelling, decreased ROM History of Current Condition She had breast cancer (left breast), diagnosed 04/2019. Partial mastectomy at that time, cancer came back, had full mastectomy August 2022. 3 lymph nodes removed. Had radiation first time. No chemo. Immediately noticed swelling after surgery. In November stopped and got a bra and prosthesis, in time it took to drive to [place] had increased swelling and pain left breast. Has tried to wear Body glove shirt shirt , anywhere where there is pressure she gets ridge. 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 Can't lay on left side, has some body dysmorphia. Feeling puffy in breast, entire arm, upper back . If I mess with arm and upper back I suffer itchy and tingling, has numbness posterior left UE. Sometimes very warm and itchy, especially at night. Had 2 sessions of PT; given info for desensitiizaion and ROM. Doing some self massage. Is trying to work on densitization. Works in [employer] and [employer], doesn't appear to increase her swelling but laying around does. Prior Treatments and Tests Mastectomy Wm Freeman August 2022, [place] in 2019, radiation at [facility]. Future Testing and Treatments Planned Back to surgeon in August 2023 PT-OP-C Subjective Start: 03/16/23 16:40 Freq: Status: Active Protocol: Document 05/25/23 10:35 [facility] (Rec: 05/25/23 11:49 [facility] [id number]) OP-PT Subjective Patient Comments Patient Comments Reports doing better but edema very unpredictable overall. Excited to get pump. Currently wearing Prarie wear bra, swell spot, 2 off the shelf compression gloves, and compression sleevel Juzo 20-30 mm Hg. Has been going to the pool for aquatic exercise. Is going to apply for money from the [employer] in May. Has applied to [employer] for money to assist as well. PT-OP-J Posture/Palpation/Skin Start: 03/16/23 16:40 Freq: Status: Active Protocol: Document 03/25/23 12:53 [facility] (Rec: 03/25/23 16:57 [facility] [id number]) Palpation Assessment Location left axilla Palpation Details axillary cording incision Palpation Findings Soft Tissue Tightness,Trigger Point posterior upper arm Palpation Findings Edema Palpation Details numbness left lateral thorax Palpation Findings Edema,Tenderness PT-OP-K Range of Motion Start: 03/16/23 16:40 Freq: Status: Active Protocol: Document 03/25/23 12:53 [facility] (Rec: 03/25/23 16:57 [facility] [id number]) Shoulder Goniometric Range of Motion Shoulder Left Active Shoulder ROM WFL No Flexion 145 Extension 25 Abduction 140 Horizontal Abduction 90 External Rotation at 0 degrees Abduction 50 Internal Rotation Behind Back (text) T8 Right Active Shoulder ROM WFL Yes PT-OP-N Lymphedema Start: 03/16/23 16:40 Freq: Status: Active Protocol: Document 05/25/23 10:35 [facility] (Rec: 05/25/23 11:49 [facility] [id number]) Lymphedema Measurements Upper Extremity Circumference Measurements Left Affected MCP 17.4 cm Dorsum of Hand 18 cm Wrist 15 cm 5 cm From Wrist Crease 16.3 cm 10 cm From Wrist Crease 18.8 cm 15 cm From Wrist Crease 21.3 cm 20 cm From Wrist Crease 22.9 cm 25 cm From Wrist Crease 24.7 cm 30 cm From Wrist Crease 28.3 cm 35 cm From Wrist Crease 31.1 cm 40 cm From Wrist Crease 33 cm Elbow Joint 23.4 cm - 91.6 96.0 PT-OP-Q Treatments Start: 03/16/23 16:40 Freq: Status: Active Protocol: Document 05/25/23 10:35 [facility] (Rec: 05/25/23 11:49 [facility] [id number]) Lymphedema Treatment Sequential Lymphedema Exercises Comments reviewed Compression Garment Assessment Compression Garment Assessment Details good fit of all compressin garments Other Other Instructed in use of Airos sequential pneumatic pump; ArmPlus garment. Set-up and trial use with patient education during trial. PT-OP-T Assessment and Plan Start: 03/16/23 16:40 Freq: Status: Active Protocol: Document 05/25/23 10:35 [facility] (Rec: 05/25/23 11:49 [facility] [id number]) Physical Therapy Assessment Impairments Impairments Edema,Pain,ROM,Soft Tissue Mobility Goals Four Impairment axillary cording left axilla Impairment affects left UE function Equipment Maintenance Engineer Goal (LTG) eliminate axillary cording left axilla for improved left UE function and lymphatic flow LTG Duration 06/24/23 Three Impairment lymphedema life impact scale 38% Short Term Goal (STG) decrease lymphedema life impact scale to no greater than 25% STG Duration 05/06/23 [facility] Goal (LTG) Decrease lymphedema life impact scale to no greater than 15% as measure of improve ability to self manage and improved quality of life LTG Duration 06/23/24 Two Impairment decreased ROM left shoulder Short Term Goal (STG) patient to be instructed in ROM ex for left UE STG Duration 04/30/23 [facility] Goal (LTG) Left shoulder ROM WNL LTG Duration 06/24/23 One Impairment lymphedema left UE, lateral thorax and upper back Short Term Goal (STG) Patient to be instructed in all aspects of lymphedema care to include skin care, manual lymphatic drainage, lymphedema exercises and compression STG Duration 05/06/23 Equipment Maintenance Engineer Goal (LTG) decrease lymphedema to stable level (no increase or decrease in circumference greater than 1 cm over the course of 1 week), patient to be independent with all aspects of lymphedema care, and obtain appropriate compression garments LTG Duration 06/24/23 Assessment Summary Assessment Patient has obtained appropriate compression bra, sleeve, swell spot. Still needs to get compression glove but cannot afford further garments at this time. Given information about [employer] company to potentially assist with coverage for compression garments. Prarie Wear size L bra, Swell spot breast, Juzo Size 1 (xs) sleeve. Reports was measured for size small glove can't remember brand but wasn't able to afford further compression . Physical Therapy Plan Frequency and Duration Frequency of Treatment 20 visits Duration of treatment (weeks) 12 Plan of Care Start Date 03/25/23 Plan of Care End Date 06/24/23 Therapeutic Interventions Therapeutic Interventions Home Exercise Program, Lymphedema Management,Manual Therapy,Patient/Caregiver Education,Self-Care/Home Management,Soft Tissue Mobilization,Therapeutic Exercises Modalities Vasopneumatic Devices Next Visit Focus/Plan Next Note Type Treatment Note Next Visit Plan continue CDT, evaluate response to sequential pneumatic pump, compression garments, [employer].
--- NOTE | 2023-06-01 12:11 | PT.OTN ---
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) Physical Therapy Treatment Note PT-OP-A Visit Information Start: 03/16/23 16:40 Freq: Status: Active Protocol: Document 06/01/23 10:28 [facility] (Rec: 06/01/23 11:11 [facility] [id number]) Out-Patient Physical Therapy Visit Information Visit Information Visit Type Treatment Note Visit Start Time 10:35 Visit Stop Time 12:00 Visit Number 7 Evaluation Information Evaluation Date 03/25/23 PT-OP-B Current Condition Start: 03/16/23 16:40 Freq: Status: Active Protocol: Document 06/01/23 10:28 [facility] (Rec: 06/01/23 11:11 [facility] [id number]) Current Condition History of Current Condition Onset Date 2019 Current Complaints swelling, decreased ROM History of Current Condition She had breast cancer (left breast), diagnosed 04/2019. Partial mastectomy at that time, cancer came back, had full mastectomy August 2022. 3 lymph nodes removed. Had radiation first time. No chemo. Immediately noticed swelling after surgery. In November stopped and got a bra and prosthesis, in time it took to drive to [place] had increased swelling and pain left breast. Has tried to wear Body glove shirt shirt , anywhere where there is pressure she gets ridge. 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 Can't lay on left side, has some body dysmorphia. Feeling puffy in breast, entire arm, upper back . If I mess with arm and upper back I suffer itchy and tingling, has numbness posterior left UE. Sometimes very warm and itchy, especially at night. Had 2 sessions of PT; given info for desensitiizaion and ROM. Doing some self massage. Is trying to work on densitization. Works in [employer] and [employer], doesn't appear to increase her swelling but laying around does. Prior Treatments and Tests Mastectomy Wm Freeman August 2022, [place] in 2019, radiation at [facility]. Future Testing and Treatments Planned Back to surgeon in August 2023 PT-OP-C Subjective Start: 03/16/23 16:40 Freq: Status: Active Protocol: Document 06/01/23 10:28 [facility] (Rec: 06/01/23 11:11 [facility] [id number]) OP-PT Subjective Patient Comments Patient Comments Reports her hand seems to be problematic, has 2 gloves, one good for fingers and one good for plalm, but neither good for hand. Likes Tory bra. Has been going to pool as much as possible. Likes the [place] Bra given on loan, wants to order one as well as compression shirt with foam under arm. Waiting for approval to cover compression garments through [employer]. Wants to consult with Laura Nesbitt regarding adjustments to pump. PT-OP-J Posture/Palpation/Skin Start: 03/16/23 16:40 Freq: Status: Active Protocol: Document 03/25/23 12:53 [facility] (Rec: 03/25/23 16:57 [facility] [id number]) Palpation Assessment Location left axilla Palpation Details axillary cording incision Palpation Findings Soft Tissue Tightness,Trigger Point posterior upper arm Palpation Findings Edema Palpation Details numbness left lateral thorax Palpation Findings Edema,Tenderness PT-OP-K Range of Motion Start: 03/16/23 16:40 Freq: Status: Active Protocol: Document 03/25/23 12:53 [facility] (Rec: 03/25/23 16:57 [facility] [id number]) Shoulder Goniometric Range of Motion Shoulder Left Active Shoulder ROM WFL No Flexion 145 Extension 25 Abduction 140 Horizontal Abduction 90 External Rotation at 0 degrees Abduction 50 Internal Rotation Behind Back (text) T8 Right Active Shoulder ROM WFL Yes PT-OP-N Lymphedema Start: 03/16/23 16:40 Freq: Status: Active Protocol: Document 06/01/23 10:28 [facility] (Rec: 06/01/23 11:11 [facility] [id number]) Lymphedema Measurements Upper Extremity Circumference Measurements Left Affected MCP 17.3 cm Dorsum of Hand 17.8 cm Wrist 14.9 cm 5 cm From Wrist Crease 16.3 cm 10 cm From Wrist Crease 18.6 cm 15 cm From Wrist Crease 20.8 cm 20 cm From Wrist Crease 22.5 cm 25 cm From Wrist Crease 24.6 cm 30 cm From Wrist Crease 28.3 cm 35 cm From Wrist Crease 30.2 cm 40 cm From Wrist Crease 32.4 cm Elbow Joint 23.1 cm - 92 94.6 PT-OP-Q Treatments Start: 03/16/23 16:40 Freq: Status: Active Protocol: Document 06/01/23 10:28 [facility] (Rec: 06/01/23 12:11 [facility] [id number]) Lymphedema Treatment Manual Lymphatic Drainage Location for left UE and thorax lymphedema Duration 30 Comments continue education for self MLD, routing of fluid, self massage sternal and rib nodes, inc time on hand primarily palm Lymphedema Wrapping Other WearEase Tory Bra, Jobst compression sleeve and glove. Issued foam and foam chips for use in glove for better compression Sequential Lymphedema Exercises Comments reviewed Compression Garment Assessment Compression Garment Assessment Details working to improve glove compression especiaolly in palm with foam and foam chips Other Other patient to call [facility] regarding pump to try to infrease focus on hand. Also instructed to try foam on/in hand during pumping PT-OP-T Assessment and Plan Start: 03/16/23 16:40 Freq: Status: Active Protocol: Document 06/01/23 10:28 [facility] (Rec: 06/01/23 11:11 [facility] [id number]) Physical Therapy Assessment Impairments Impairments Edema,Pain,ROM,Soft Tissue Mobility Goals Four Impairment axillary cording left axilla Impairment affects left UE function Long-Term Goal (LTG) eliminate axillary cording left axilla for improved left UE function and lymphatic flow LTG Duration 06/24/23 Three Impairment lymphedema life impact scale 38% Short Term Goal (STG) decrease lymphedema life impact scale to no greater than 25% STG Duration 05/06/23 Long-Term Goal (LTG) Decrease lymphedema life impact scale to no greater than 15% as measure of improve ability to self manage and improved quality of life LTG Duration 06/23/24 Two Impairment decreased ROM left shoulder Short Term Goal (STG) patient to be instructed in ROM ex for left UE STG Duration 04/30/23 Manager Lighting Goal (LTG) Left shoulder ROM WNL LTG Duration 06/24/23 One Impairment lymphedema left UE, lateral thorax and upper back Short Term Goal (STG) Patient to be instructed in all aspects of lymphedema care to include skin care, manual lymphatic drainage, lymphedema exercises and compression STG Duration 05/06/23 Manager Lighting Goal (LTG) decrease lymphedema to stable level (no increase or decrease in circumference greater than 1 cm over the course of 1 week), patient to be independent with all aspects of lymphedema care, and obtain appropriate compression garments LTG Duration 06/24/23 Assessment Summary Assessment Most measurements showed decrease in circumferential measurements, good compliance to self management. Awaiting approval for garments. Using pump most every day. Physical Therapy Plan Frequency and Duration Frequency of Treatment 20 visits Duration of treatment (weeks) 12 Plan of Care Start Date 03/25/23 Plan of Care End Date 06/24/23 Therapeutic Interventions Therapeutic Interventions Home Exercise Program, Lymphedema Management,Manual Therapy,Patient/Caregiver Education,Self-Care/Home Management,Soft Tissue Mobilization,Therapeutic Exercises Modalities Vasopneumatic Devices Next Visit Focus/Plan Next Note Type Treatment Note Next Visit Plan Continue CDT, assist with paperwork for compression garments through [employer] as needed.
--- NOTE | 2023-06-08 12:28 | PT.OTN ---
Current Diagnoses Postmastectomy lymphedema syndrome (06/08/23) Physical Therapy Treatment Note PT-OP-A Visit Information Start: 03/16/23 16:40 Freq: Status: Active Protocol: Document 06/08/23 11:10 [facility] (Rec: 06/08/23 11:[address] [facility] [id number]) Out-Patient Physical Therapy Visit Information Visit Information Visit Type Treatment Note Visit Note [place] Start Time 11:10 Visit Stop Time 12:25 Visit Number 8 Evaluation Information Evaluation Date 03/25/23 PT-OP-B Current Condition Start: 03/16/23 16:40 Freq: Status: Active Protocol: Document 06/08/23 11:10 [facility] (Rec: 06/08/23 11:[address] [facility] [id number]) Current Condition History of Current Condition Onset Date 2019 Current Complaints swelling, decreased ROM History of Current Condition She had breast cancer (left breast), diagnosed 04/2019. Partial mastectomy at that time, cancer came back, had full mastectomy August 2022. 3 lymph nodes removed. Had radiation first time. No chemo. Immediately noticed swelling after surgery. In November stopped and got a bra and prosthesis, in time it took to drive to [place] had increased swelling and pain left breast. Has tried to wear Body glove shirt shirt , anywhere where there is pressure she gets ridge. 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 Can't lay on left side, has some body dysmorphia. Feeling puffy in breast, entire arm, upper back . If I mess with arm and upper back I suffer itchy and tingling, has numbness posterior left UE. Sometimes very warm and itchy, especially at night. Had 2 sessions of PT; given info for desensitiizaion and ROM. Doing some self massage. Is trying to work on densitization. 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 Prior Treatments and Tests Mastectomy Wm Freeman August 2022, [place] in 2019, radiation at [facility]. Future Testing and Treatments Planned Back to surgeon in August 2023 PT-OP-C Subjective Start: 03/16/23 16:40 Freq: Status: Active Protocol: Document 06/08/23 11:10 [facility] (Rec: 06/08/23 11:[address] [facility] [id number]) OP-PT Subjective Patient Comments Patient Comments pain in hand, doesn't know why , made a compression pad for palm, helping some, using pad in pump, hasn't gotten through to [facility] to get increased compression, states sleeve too loose. Hand still feels very problematic. One day her back got super full. NOt able to go to the pool the last couple days. PT-OP-J Posture/Palpation/Skin Start: 03/16/23 16:40 Freq: Status: Active Protocol: Document 03/25/23 12:[address] [facility] (Rec: 03/25/23 16:[address] [facility] [id number]) Palpation Assessment Location left axilla Palpation Details axillary cording incision Palpation Findings Soft Tissue Tightness,Trigger Point posterior upper arm Palpation Findings Edema Palpation Details numbness left lateral thorax Palpation Findings Edema,Tenderness PT-OP-K Range of Motion Start: 03/16/23 16:40 Freq: Status: Active Protocol: Document 03/25/23 12:[address] [facility] (Rec: 03/25/23 16:[address] [facility] [id number]) Shoulder Goniometric Range of Motion Shoulder Left Active Shoulder ROM WFL No Flexion 145 Extension 25 Abduction 140 Horizontal Abduction 90 External Rotation at 0 degrees Abduction 50 Internal Rotation Behind Back (text) T8 Right Active Shoulder ROM WFL Yes PT-OP-N Lymphedema Start: 03/16/23 16:40 Freq: Status: Active Protocol: Document 06/08/23 11:[address] [facility] (Rec: 06/08/23 11:[address] [facility] [id number]) Lymphedema Measurements Upper Extremity Circumference Measurements Left Affected MCP 17.7 cm Dorsum of Hand 18.7 cm Wrist 15.4 cm 5 cm From Wrist Crease 16.5 cm 10 cm From Wrist Crease 18.5 cm 15 cm From Wrist Crease 20.7 cm 20 cm From Wrist Crease 22.6 cm 25 cm From Wrist Crease 23.9 cm 30 cm From Wrist Crease 27 cm 35 cm From Wrist Crease 30.4 cm 40 cm From Wrist Crease 32.4 cm Elbow Joint 23.5 cm - 91 93.6 PT-OP-Q Treatments Start: 03/16/23 16:40 Freq: Status: Active Protocol: Document 06/08/23 11:[address] [facility] (Rec: 06/08/23 11:[address] [facility] [id number]) Lymphedema Treatment Manual Lymphatic Drainage Location for left UE and thorax lymphedema Duration 30 Comments continue education for self MLD, routing of fluid, self massage sternal and rib nodes, inc time on hand primarily palm Lymphedema Wrapping Other WearEase Tory Bra, Jobst compression sleeve and glove. Issued foam and foam chips for use in glove for better compression Compression Garment Assessment Compression Garment Assessment Details working to improve glove compression especiaolly in palm with foam and foam chips PT-OP-T Assessment and Plan Start: 03/16/23 16:40 Freq: Status: Active Protocol: Document 06/08/23 11:[address] [facility] (Rec: 06/08/23 11:[address] [facility] [id number]) Physical Therapy Assessment Goals Four Impairment axillary cording left axilla Impairment affects left UE function Lumber Press Operator Goal (LTG) eliminate axillary cording left axilla for improved left UE function and lymphatic flow LTG Duration 06/24/23 Three Impairment lymphedema life impact scale 38% Short Term Goal (STG) decrease lymphedema life impact scale to no greater than 25% STG Duration goal met Lumber Press Operator Goal (LTG) Decrease lymphedema life impact scale to no greater than 15% as measure of improve ability to self manage and improved quality of life LTG Duration 06/23/24 Two Impairment decreased ROM left shoulder Short Term Goal (STG) patient to be instructed in ROM ex for left UE STG Duration goal met Jail Goal (LTG) Left shoulder ROM WNL LTG Duration 06/24/23 One Impairment lymphedema left UE, lateral thorax and upper back Short Term Goal (STG) Patient to be instructed in all aspects of lymphedema care to include skin care, manual lymphatic drainage, lymphedema exercises and compression STG Duration goal met Lumber Press Operator Goal (LTG) decrease lymphedema to stable level (no increase or decrease in circumference greater than 1 cm over the course of 1 week), patient to be independent with all aspects of lymphedema care, and obtain appropriate compression garments LTG Duration 06/24/23 Assessment Summary Assessment decreased circumferential measurements subaxillary and trunk but increased in hand and wrist; continues to try to problem solve lymphedema in hand, will call Laura CAres and try foam around hand in pump Physical Therapy Plan Frequency and Duration Frequency of Treatment 20 visits Duration of treatment (weeks) 12 Plan of Care Start Date 03/25/23 Plan of Care End Date 06/24/23 Therapeutic Interventions Therapeutic Interventions Home Exercise Program, Lymphedema Management,Manual Therapy,Patient/Caregiver Education,Self-Care/Home Management,Soft Tissue Mobilization,Therapeutic Exercises Modalities Vasopneumatic Devices Next Visit Focus/Plan Next Note Type Treatment Note Next Visit Plan Continue PT for CDT, emphasis on problem solving hand lymphedema, compression needs. Patient to try foam inside of lymphedema pump for hand.
--- NOTE | 2023-06-15 16:30 | PT.OTRE ---
Current Diagnoses Postmastectomy lymphedema syndrome (06/15/23) Past Medical History (Last Updated 02/23/21 @ 21:12 by Tory Chaparro) Breast cancer CHI (closed head injury) H/O actinic keratosis H/O acute bronchitis HSV (herpes simplex virus) infection Migraines (~2018) PTSD (post-traumatic stress disorder) Puncture wound without foreign body of right forearm, initial encounter Surgical History History of tonsillectomy Visit Care Team Role Provider Type Chris Bergman MD Attending Provider Physician Family Provider Primary Care Provider Referring Provider Specialty: Family Practice Address: [address], [address] Email: [email or web address] Physical Therapy Re-Evaluation PT-OP-A Visit Information Start: 03/16/23 16:40 Freq: Status: Active Protocol: Document 06/15/23 10:33 [facility] (Rec: 06/15/23 12:01 [facility] [id number]) Out-Patient Physical Therapy Visit Information Visit Information Visit Type Treatment Note Visit Note [place] Start Time 10:50 Visit Stop Time 12:00 Visit Number 9 Evaluation Information Evaluation Date 03/25/23 PT-OP-B Current Condition Start: 03/16/23 16:40 Freq: Status: Active Protocol: Document 06/15/23 10:33 [facility] (Rec: 06/15/23 12:01 [facility] [id number]) Current Condition History of Current Condition Onset Date 2019 Current Complaints swelling, decreased ROM History of Current Condition She had breast cancer (left breast), diagnosed 04/2019. Partial mastectomy at that time, cancer came back, had full mastectomy August 2022. 3 lymph nodes removed. Had radiation first time. No chemo. Immediately noticed swelling after surgery. In November stopped and got a bra and prosthesis, in time it took to drive to [place] had increased swelling and pain left breast. Has tried to wear Body glove shirt shirt , anywhere where there is pressure she gets ridge. 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 Can't lay on left side, has some body dysmorphia. Feeling puffy in breast, entire arm, upper back . If I mess with arm and upper back I suffer itchy and tingling, has numbness posterior left UE. Sometimes very warm and itchy, especially at night. Had 2 sessions of PT; given info for desensitiizaion and ROM. Doing some self massage. Is trying to work on densitization. Works in [employer] and [employer], doesn't appear to increase her swelling but laying around does. Prior Treatments and Tests Mastectomy Wm Evelia Freeman August 2022, [place] in 2019, radiation at [facility]. Future Testing and Treatments Planned Back to surgeon in August 2023 PT-OP-C Subjective Start: 03/16/23 16:40 Freq: Status: Active Protocol: Document 06/08/23 11:10 [facility] (Rec: 06/08/23 11:27 [facility] [id number]) OP-PT Subjective Patient Comments Patient Comments pain in hand, doesn't know why , made a compression pad for palm, helping some, using pad in pump, hasn't gotten through to [facility] to get increased compression, states sleeve too loose. Hand still feels very problematic. One day her back got super full. NOt able to go to the pool the last couple days. PT-OP-J Posture/Palpation/Skin Start: 03/16/23 16:40 Freq: Status: Active Protocol: Document 03/25/23 12:53 [facility] (Rec: 03/25/23 16:57 [facility] [id number]) Palpation Assessment Location left axilla Palpation Details axillary cording incision Palpation Findings Soft Tissue Tightness,Trigger Point posterior upper arm Palpation Findings Edema Palpation Details numbness left lateral thorax Palpation Findings Edema,Tenderness PT-OP-K Range of Motion Start: 03/16/23 16:40 Freq: Status: Active Protocol: Document 03/25/23 12:53 [facility] (Rec: 03/25/23 16:57 [facility] [id number]) Shoulder Goniometric Range of Motion Shoulder Measured in Degrees Left Active Shoulder ROM WFL No Flexion 145 Extension 25 Abduction 140 Horizontal Abduction 90 External Rotation at 0 degrees Abduction 50 Internal Rotation Behind Back (text) T8 Right Active Shoulder ROM WFL Yes PT-OP-N Lymphedema Start: 03/16/23 16:40 Freq: Status: Active Protocol: Document 06/15/23 10:33 [facility] (Rec: 06/15/23 12:01 [facility] [id number]) Lymphedema Measurements Upper Extremity Circumference Measurements Left Affected MCP 17.4 cm Dorsum of Hand 18 cm Wrist 14.9 cm 5 cm From Wrist Crease 16.5 cm 10 cm From Wrist Crease 18.7 cm 15 cm From Wrist Crease 21.4 cm 20 cm From Wrist Crease 22.3 cm 25 cm From Wrist Crease 23.7 cm 30 cm From Wrist Crease 27.5 cm 35 cm From Wrist Crease 30.2 cm 40 cm From Wrist Crease 32.4 cm Elbow Joint 22.6 cm - 91.7 93.6 PT-OP-Q Treatments Start: 03/16/23 16:40 Freq: Status: Active Protocol: Document 06/15/23 10:33 [facility] (Rec: 06/15/23 12:01 [facility] [id number]) Lymphedema Treatment Manual Lymphatic Drainage Location for left UE and thorax lymphedema Duration 30 Comments continue education for self MLD, routing of fluid, self massage sternal and rib nodes, inc time on hand primarily palm Lymphedema Wrapping Other WearEase Tory Bra, Jobst compression sleeve and glove. Issued foam and foam chips for use in glove for better compression Compression Garment Assessment Compression Garment Assessment Details working to improve glove compression especiaolly in palm with foam and foam chips PT-OP-T Assessment and Plan Start: 03/16/23 16:40 Freq: Status: Active Protocol: Document 06/15/23 10:33 [facility] (Rec: 06/15/23 12:01 [facility] [id number]) Physical Therapy Assessment Impairments Impairments Edema,Pain,ROM,Soft Tissue Mobility Goals Four Impairment axillary cording left axilla Impairment affects left UE function Care Home Goal (LTG) eliminate axillary cording left axilla for improved left UE function and lymphatic flow 06/15/23: good goal progress; decrease in extent of cording by 50% LTG Duration 08/15/23 Three Impairment lymphedema life impact scale 38% Short Term Goal (STG) decrease lymphedema life impact scale to no greater than 25% STG Duration goal met Missile Tracking Technician Goal (LTG) Decrease lymphedema life impact scale to no greater than 15% as measure of improve ability to self manage and improved quality of life 06/15/23: not fully met, goal progress LTG Duration 08/15/23 Two Impairment decreased ROM left shoulder Short Term Goal (STG) patient to be instructed in ROM ex for left UE STG Duration goal met Missile Tracking Technician Goal (LTG) Left shoulder ROM WNL 06/15/23: mostly met, good goal progress LTG Duration 08/15/23 One Impairment lymphedema left UE, lateral thorax and upper back Short Term Goal (STG) Patient to be instructed in all aspects of lymphedema care to include skin care, manual lymphatic drainage, lymphedema exercises and compression STG Duration goal met Missile Tracking Technician Goal (LTG) decrease lymphedema to stable level (no increase or decrease in circumference greater than 1 cm over the course of 1 week), patient to be independent with all aspects of lymphedema care, and obtain appropriate compression garments 06/15/23: mostly met, good goal progress LTG Duration 08/15/23 Assessment Summary Assessment Use of foam in pump has been helpful for hand, mostly improved circumferential measurements in left arm and trunk. Patient consistent with self care, aquatic exercise, use of pump. Has made good progress toward all PT goals, demonstrates independence with self management. Has worked hard to problem solve her compression needs. Is still working to get insurance coverage. Has received sequential pneumatic pump and is using consistently. Agreed to follow up appointment in 2 months to determine need for any further PT, assess progress with self management. Physical Therapy Plan Frequency and Duration Frequency of Treatment 1 Duration of treatment (weeks) 8 Plan of Care Start Date 06/15/23 Plan of Care End Date 08/15/23 Therapeutic Interventions Therapeutic Interventions Home Exercise Program, Lymphedema Management,Manual Therapy,Patient/Caregiver Education,Self-Care/Home Management,Soft Tissue Mobilization,Therapeutic Exercises Modalities Vasopneumatic Devices Next Visit Focus/Plan Next Note Type Treatment Note Next Visit Plan Follow-up appt in July to problem solve any further issues related to self management of lymphedema, do reassessment.
--- NOTE | 2023-06-15 16:30 | PT.OPPOC ---
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) Visit Care Team Role Provider Type Chris Bergman MD Attending Provider Physician Family Provider Primary Care Provider Referring Provider Specialty: Family Practice Address: [address], [address] Email: [email or web address] Plan Of Care PT-OP-T Assessment and Plan Start: 03/16/23 16:40 Freq: Status: Active Protocol: Document 06/15/23 10:33 SAK (Rec: 06/15/23 12:01 SAK [id number]) Physical Therapy Assessment Impairments Impairments Edema,Pain,ROM,Soft Tissue Mobility Goals Four Impairment axillary cording left axilla Impairment affects left UE function Rheostat Assembler Goal (LTG) eliminate axillary cording left axilla for improved left UE function and lymphatic flow 06/15/23: good goal progress; decrease in extent of cording by 50% LTG Duration 08/15/23 Three Impairment lymphedema life impact scale 38% Short Term Goal (STG) decrease lymphedema life impact scale to no greater than 25% STG Duration goal met Half-Way Goal (LTG) Decrease lymphedema life impact scale to no greater than 15% as measure of improve ability to self manage and improved quality of life 06/15/23: not fully met, goal progress LTG Duration 08/15/23 Two Impairment decreased ROM left shoulder Short Term Goal (STG) patient to be instructed in ROM ex for left UE STG Duration goal met Rheostat Assembler Goal (LTG) Left shoulder ROM WNL 06/15/23: mostly met, good goal progress LTG Duration 08/15/23 One Impairment lymphedema left UE, lateral thorax and upper back Short Term Goal (STG) Patient to be instructed in all aspects of lymphedema care to include skin care, manual lymphatic drainage, lymphedema exercises and compression STG Duration goal met Half-Way Goal (LTG) decrease lymphedema to stable level (no increase or decrease in circumference greater than 1 cm over the course of 1 week), patient to be independent with all aspects of lymphedema care, and obtain appropriate compression garments 06/15/23: mostly met, good goal progress LTG Duration 08/15/23 Assessment Summary Assessment Use of foam in pump has been helpful for hand, mostly improved circumferential measurements in left arm and trunk. Patient consistent with self care, aquatic exercise, use of pump. Has made good progress toward all PT goals, demonstrates independence with self management. Has worked hard to problem solve her compression needs. Is still working to get insurance coverage. Has received sequential pneumatic pump and is using consistently. Agreed to follow up appointment in 2 months to determine need for any further PT, assess progress with self management. Physical Therapy Plan Frequency and Duration Frequency of Treatment 1 Duration of treatment (weeks) 8 Plan of Care Start Date 06/15/23 Plan of Care End Date 08/15/23 Therapeutic Interventions Therapeutic Interventions Home Exercise Program, Lymphedema Management,Manual Therapy,Patient/Caregiver Education,Self-Care/Home Management,Soft Tissue Mobilization,Therapeutic Exercises Modalities Vasopneumatic Devices Next Visit Focus/Plan Next Note Type Treatment Note Next Visit Plan Follow-up appt in July to problem solve any further issues related to self management of lymphedema, do reassessment. Plan of Care Dates Plan of Care Start Date 06/15/23 Plan of Care End Date 08/15/23 Electronically Signed by: Lavonne Uriostegui, PT 06/15/23 [id number] If you are in agreement with this Plan of Care, please return a signed and dated copy. I have reviewed this Plan of Care and certify that the skilled therapy services above are required to meet the patient?s needs. Physician Signature Date Printed Name and Credentials Clinical Instructor Signature Printed Name and Credentials
--- NOTE | 2023-08-10 17:40 | PT.OTRE ---
Current Diagnoses Postmastectomy lymphedema syndrome (08/10/23) Past Medical History (Last Updated 02/23/21 @ 21:12 by Tory Chaparro) Breast cancer CHI (closed head injury) H/O actinic keratosis H/O acute bronchitis HSV (herpes simplex virus) infection Migraines (~2018) PTSD (post-traumatic stress disorder) Puncture wound without foreign body of right forearm, initial encounter Surgical History History of tonsillectomy Visit Care Team Role Provider Type Chris Bergman MD Attending Provider Physician Family Provider Primary Care Provider Referring Provider Specialty: Family Practice Address: [address], [address] Email: [email or web address] Physical Therapy Re-Evaluation PT-OP-A Visit Information Start: 03/16/23 16:40 Freq: Status: Active Protocol: Document 08/10/23 12:59 SAK (Rec: 08/10/23 13:16 SAK [id number]) Out-Patient Physical Therapy Visit Information Visit Information Visit Type Re-Evaluation Visit Note reports her hand is always mad , alternates glove and flipped arthritis glove, compression sleeve with XL length gets into armpit better, wearing Prarie Wear bra and Swell Spot . Can only work about 1/2 of usual schedule. Swelling increases with heat. Hasn't been in pool in 2 weeks. Using pump, sometimes 2x/day. Consulted with Laura Nesbitt and has increased compression level on hand in pump. Has more sensation coming back in her chest. Visit Start Time 13:00 Visit Stop Time 14:10 Visit Number 10 Evaluation Information Evaluation Date 03/25/23 PT-OP-B Current Condition Start: 03/16/23 16:40 Freq: Status: Active Protocol: Document 08/10/23 12:59 SAK (Rec: 08/10/23 13:16 SAK [id number]) Current Condition History of Current Condition Onset Date 2019 Current Complaints swelling, decreased ROM History of Current Condition She had breast cancer (left breast), diagnosed 04/2019. Partial mastectomy at that time, cancer came back, had full mastectomy August 2022. 3 lymph nodes removed. Had radiation first time. No chemo. Immediately noticed swelling after surgery. In November stopped and got a bra and prosthesis, in time it took to drive to [place] had increased swelling and pain left breast. Has tried to wear Body glove shirt shirt , anywhere where there is pressure she gets ridge. 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 Can't lay on left side, has some body dysmorphia. Feeling puffy in breast, entire arm, upper back . If I mess with arm and upper back I suffer itchy and tingling, has numbness posterior left UE. Sometimes very warm and itchy, especially at night. Had 2 sessions of PT; given info for desensitiizaion and ROM. Doing some self massage. Is trying to work on densitization. Works in [employer], doesn't appear to increase her swelling but laying around does. Prior Treatments and Tests Mastectomy Wm Freeman August 2022, [place] in 2019, radiation at [facility]. Future Testing and Treatments Planned Back to surgeon in August 2023 PT-OP-C Subjective Start: 03/16/23 16:40 Freq: Status: Active Protocol: Document 06/08/23 11:10 [facility] (Rec: 06/08/23 11:27 [facility] [id number]) OP-PT Subjective Patient Comments Patient Comments pain in hand, doesn't know why , made a compression pad for palm, helping some, using pad in pump, hasn't gotten through to Laura care to get increased compression, states sleeve too loose. Hand still feels very problematic. One day her back got super full. NOt able to go to the pool the last couple days. PT-OP-J Posture/Palpation/Skin Start: 03/16/23 16:40 Freq: Status: Active Protocol: Document 03/25/23 12:53 SAK (Rec: 03/25/23 16:57 [facility] [id number]) Palpation Assessment Location left axilla Palpation Details axillary cording incision Palpation Findings Soft Tissue Tightness,Trigger Point posterior upper arm Palpation Findings Edema Palpation Details numbness left lateral thorax Palpation Findings Edema,Tenderness PT-OP-K Range of Motion Start: 03/16/23 16:40 Freq: Status: Active Protocol: Document 03/25/23 12:53 SAK (Rec: 03/25/23 16:57 [facility] [id number]) Shoulder Goniometric Range of Motion Shoulder Measured in Degrees Left Active Shoulder ROM WFL No Flexion 145 Extension 25 Abduction 140 Horizontal Abduction 90 External Rotation at 0 degrees Abduction 50 Internal Rotation Behind Back (text) T8 Right Active Shoulder ROM WFL Yes PT-OP-N Lymphedema Start: 03/16/23 16:40 Freq: Status: Active Protocol: Document 08/10/23 12:59 [facility] (Rec: 08/10/23 13:16 [facility] [id number]) Lymphedema Measurements Upper Extremity Circumference Measurements Left Affected MCP 17.7 cm Dorsum of Hand 17.8 cm Wrist 14.8 cm 5 cm From Wrist Crease 16.3 cm 10 cm From Wrist Crease 18.8 cm 15 cm From Wrist Crease 21.3 cm 20 cm From Wrist Crease 22.4 cm 25 cm From Wrist Crease 23.9 cm 30 cm From Wrist Crease 27.3 cm 35 cm From Wrist Crease 29.3 cm 40 cm From Wrist Crease 31.8 cm Elbow Joint 22.9 cm - 89.3 94 PT-OP-Q Treatments Start: 03/16/23 16:40 Freq: Status: Active Protocol: Document 08/10/23 12:59 [facility] (Rec: 08/10/23 13:16 [facility] [id number]) Lymphedema Treatment Manual Lymphatic Drainage Location for left UE and thorax lymphedema Duration 30 Comments continue education for self MLD, routing of fluid, self massage sternal and rib nodes, inc time on hand primarily palm Lymphedema Wrapping Other WearEase Tory Bra, Jobst compression sleeve and glove. Issued foam and foam chips for use in glove for better compression Sequential Lymphedema Exercises Comments reviewed Compression Garment Assessment Compression Garment Assessment Details working to improve glove compression especiaolly in palm with foam and foam chips PT-OP-T Assessment and Plan Start: 03/16/23 16:40 Freq: Status: Active Protocol: Document 08/10/23 12:59 [facility] (Rec: 08/10/23 13:16 [facility] [id number]) Physical Therapy Assessment Impairments Impairments Edema,Pain,ROM,Soft Tissue Mobility Goals Four Impairment axillary cording left axilla Impairment affects left UE function [facility] Goal (LTG) eliminate axillary cording left axilla for improved left UE function and lymphatic flow 06/15/23: good goal progress; decrease in extent of cording by 50% 08/10/23: cording dec by 60% LTG Duration 10/10/23 Three Impairment lymphedema life impact scale 38% Short Term Goal (STG) decrease lymphedema life impact scale to no greater than 25% STG Duration goal met [facility]ci Goal (LTG) Decrease lymphedema life impact scale to no greater than 15% as measure of improve ability to self manage and improved quality of life 06/15/23: not fully met, goal progress 08/10/23: score 19% LTG Duration 10/10/23 Two Impairment decreased ROM left shoulder Short Term Goal (STG) patient to be instructed in ROM ex for left UE STG Duration goal met [facility]ci Goal (LTG) Left shoulder ROM WNL 06/15/23: mostly met, good goal progress 08/10/23: goal met LTG Duration goal met One Impairment lymphedema left UE, lateral thorax and upper back Short Term Goal (STG) Patient to be instructed in all aspects of lymphedema care to include skin care, manual lymphatic drainage, lymphedema exercises and compression STG Duration goal met [facility]ci Goal (LTG) decrease lymphedema to stable level (no increase or decrease in circumference greater than 1 cm over the course of 1 week), patient to be independent with all aspects of lymphedema care, and obtain appropriate compression garments 06/15/23: mostly met, good goal progress 08/15/23: most problematic areas are lateral left trunk and left hand; patient at times uses compression pump 2x /day. Has difficulty with self massage lateral trunk routing to posterio LTG Duration 10/10/23 Assessment Summary Assessment Measurements stable today, patient having more difficulty managing lymphedema especially with warming temperatures, used compression pump 2x yesterday. She is highly compliant with all aspects of her lymphedema self -care. Fatigue remains a factor with patient unable to work more than 50% amount that she used to. Cointinues to work to get insurance coverage for compression garments as they are prohibitively expense . Would benefit from further follow-up in 3-4 weeks. Physical Therapy Plan Frequency and Duration Frequency of Treatment 2 visits Duration of treatment (weeks) 8 Plan of Care Start Date 08/10/23 Plan of Care End Date 10/10/23 Therapeutic Interventions Therapeutic Interventions Home Exercise Program, Lymphedema Management,Manual Therapy,Patient/Caregiver Education,Self-Care/Home Management,Soft Tissue Mobilization,Therapeutic Exercises Modalities Vasopneumatic Devices Next Visit Focus/Plan Next Note Type Treatment Note Next Visit Plan Follow-up appt in August to problem solve any further issues related to self management of lymphedema, do reassessment.
--- NOTE | 2023-08-10 17:40 | PT.OPPOC ---
Physical, Occupational & Speech Therapy At [facility] Current Diagnoses Postmastectomy lymphedema syndrome (08/10/23) Visit Care Team Role Provider Type Chris Bergman MD Attending Provider Physician Family Provider Primary Care Provider Referring Provider Specialty: Family Practice Address: [address], [address] Email: [email or web address] Plan Of Care PT-OP-T Assessment and Plan Start: 03/16/23 16:40 Freq: Status: Active Protocol: Document 08/10/23 12:59 SAK (Rec: 08/10/23 13:16 SAK [id number]) Physical Therapy Assessment Impairments Impairments Edema,Pain,ROM,Soft Tissue Mobility Goals Four Impairment axillary cording left axilla Impairment affects left UE function Product Inspection Coordinator Goal (LTG) eliminate axillary cording left axilla for improved left UE function and lymphatic flow 06/15/23: good goal progress; decrease in extent of cording by 50% 08/10/23: cording dec by 60% LTG Duration 10/10/23 Three Impairment lymphedema life impact scale 38% Short Term Goal (STG) decrease lymphedema life impact scale to no greater than 25% STG Duration goal met Product Inspection Coordinator Goal (LTG) Decrease lymphedema life impact scale to no greater than 15% as measure of improve ability to self manage and improved quality of life 06/15/23: not fully met, goal progress 08/10/23: score 19% LTG Duration 10/10/23 Two Impairment decreased ROM left shoulder Short Term Goal (STG) patient to be instructed in ROM ex for left UE STG Duration goal met Nursing Home Goal (LTG) Left shoulder ROM WNL 06/15/23: mostly met, good goal progress 08/10/23: goal met LTG Duration goal met One Impairment lymphedema left UE, lateral thorax and upper back Short Term Goal (STG) Patient to be instructed in all aspects of lymphedema care to include skin care, manual lymphatic drainage, lymphedema exercises and compression STG Duration goal met Nursing Home Goal (LTG) decrease lymphedema to stable level (no increase or decrease in circumference greater than 1 cm over the course of 1 week), patient to be independent with all aspects of lymphedema care, and obtain appropriate compression garments 06/15/23: mostly met, good goal progress 08/15/23: most problematic areas are lateral left trunk and left hand; patient at times uses compression pump 2x /day. Has difficulty with self massage lateral trunk routing to posterio LTG Duration 10/10/23 Assessment Summary Assessment Measurements stable today, patient having more difficulty managing lymphedema especially with warming temperatures, used compression pump 2x yesterday. She is highly compliant with all aspects of her lymphedema self -care. Fatigue remains a factor with patient unable to work more than 50% amount that she used to. Cointinues to work to get insurance coverage for compression garments as they are prohibitively expense . Would benefit from further follow-up in 3-4 weeks. Physical Therapy Plan Frequency and Duration Frequency of Treatment 2 visits Duration of treatment (weeks) 8 Plan of Care Start Date 08/10/23 Plan of Care End Date 10/10/23 Therapeutic Interventions Therapeutic Interventions Home Exercise Program, Lymphedema Management,Manual Therapy,Patient/Caregiver Education,Self-Care/Home Management,Soft Tissue Mobilization,Therapeutic Exercises Modalities Vasopneumatic Devices Next Visit Focus/Plan Next Note Type Treatment Note Next Visit Plan Follow-up appt in August to problem solve any further issues related to self management of lymphedema, do reassessment. Plan of Care Dates Plan of Care Start Date 08/10/23 Plan of Care End Date 10/10/23 Electronically Signed by: Lavonne Uriostegui, PT 08/11/23 1961 If you are in agreement with this Plan of Care, please return a signed and dated copy. I have reviewed this Plan of Care and certify that the skilled therapy services above are required to meet the patient?s needs. Physician Signature Date Printed Name and Credentials Clinical Instructor Signature Printed Name and Credentials
--- NOTE | 2023-12-22 14:09 | PT.OPDS ---
Current Diagnoses Postmastectomy lymphedema syndrome (08/10/23) Visit Care Team Role Provider Type Chris Bergman MD Attending Provider Physician Family Provider Primary Care Provider Referring Provider Specialty: Family Practice Address: [address] [address], [place], [address] Email: [email or web address] Visit Number Visit Number 10 Discharge Summary PT-OP-B Current Condition Start: 03/16/23 16:40 Freq: Status: Active Protocol: Document 08/10/23 12:59 SAK (Rec: 08/10/23 13:16 SAK [id number]) Current Condition History of Current Condition Onset Date 2019 Current Complaints swelling, decreased ROM History of Current Condition She had breast cancer (left breast), diagnosed 04/2019. Partial mastectomy at that time, cancer came back, had full mastectomy August 2022. 3 lymph nodes removed. Had radiation first time. No chemo. Immediately noticed swelling after surgery. In November stopped and got a bra and prosthesis, in time it took to drive to [place] had increased swelling and pain left breast. Has tried to wear Body glove shirt shirt , anywhere where there is pressure she gets ridge. 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 Can't lay on left side, has some body dysmorphia. Feeling puffy in breast, entire arm, upper back . If I mess with arm and upper back I suffer itchy and tingling, has numbness posterior left UE. Sometimes very warm and itchy, especially at night. Had 2 sessions of PT; given info for desensitiizaion and ROM. Doing some self massage. Is trying to work on densitization. Works in [employer] and [employer], doesn't appear to increase her swelling but laying around does. Prior Treatments and Tests Mastectomy Wm Freeman August 2022, [place] in 2019, radiation at [facility]. Future Testing and Treatments Planned Back to surgeon in August 2023 PT-OP-C Subjective Start: 03/16/23 16:40 Freq: Status: Active Protocol: Document 06/08/23 11:10 SAK (Rec: 06/08/23 11:27 [facility] [id number]) OP-PT Subjective Patient Comments Patient Comments pain in hand, doesn't know why , made a compression pad for palm, helping some, using pad in pump, hasn't gotten through to Laura care to get increased compression, states sleeve too loose. Hand still feels very problematic. One day her back got super full. NOt able to go to the pool the last couple days. PT-OP-J Posture/Palpation/Skin Start: 03/16/23 16:40 Freq: Status: Active Protocol: Document 03/25/23 12:53 [facility] (Rec: 03/25/23 16:57 [facility] [id number]) Palpation Assessment Location left axilla Palpation Details axillary cording incision Palpation Findings Soft Tissue Tightness,Trigger Point posterior upper arm Palpation Findings Edema Palpation Details numbness left lateral thorax Palpation Findings Edema,Tenderness PT-OP-K Range of Motion Start: 03/16/23 16:40 Freq: Status: Active Protocol: Document 03/25/23 12:53 [facility] (Rec: 03/25/23 16:57 [facility] [id number]) Shoulder Goniometric Range of Motion Shoulder Left Active Shoulder ROM WFL No Flexion 145 Extension 25 Abduction 140 Horizontal Abduction 90 External Rotation at 0 degrees Abduction 50 Internal Rotation Behind Back (text) T8 Right Active Shoulder ROM WFL Yes PT-OP-N Lymphedema Start: 03/16/23 16:40 Freq: Status: Active Protocol: Document 08/10/23 12:59 [facility] (Rec: 08/10/23 13:16 [facility] [id number]) Lymphedema Measurements Upper Extremity Circumference Measurements Left Affected MCP 17.7 cm Dorsum of Hand 17.8 cm Wrist 14.8 cm 5 cm From Wrist Crease 16.3 cm 10 cm From Wrist Crease 18.8 cm 15 cm From Wrist Crease 21.3 cm 20 cm From Wrist Crease 22.4 cm 25 cm From Wrist Crease 23.9 cm 30 cm From Wrist Crease 27.3 cm 35 cm From Wrist Crease 29.3 cm 40 cm From Wrist Crease 31.8 cm Elbow Joint 22.9 cm - 89.3 94 PT-OP-T Assessment and Plan Start: 03/16/23 16:40 Freq: Status: Active Protocol: Document 12/22/23 14:07 [facility] (Rec: 12/22/23 14:09 [facility] [id number]) Physical Therapy Plan Discharge Physical Therapy Discharge Reasons No Longer Attending PT Discharge Comments May benefit from further PT in the future but will need a new prescription
== END 2023-12-24 14:00 | disposition home or self-care (01) ==
LOC: PHYS 13:00
PROVIDERS: Family Provider Family Medicine; PCP Family Medicine; Referring Provider Family Medicine; Visit Provider Family Medicine
DX: I97.2 Postmastectomy lymphedema syndrome (principal)
CPT/HCPCS: 29584; 97110; 97140; 97162; 97535

== ENCOUNTER 2024-05-11 09:04 | Day surgery (SDC) | payer OTHER, SELFPAY ==
[2024-05-11 09:59] VITALS: BP 110/67; PULSE 64; RESP 16; TEMP 36.3; O2SAT 99
[2024-05-11] MEDS: LACTATED RINGERS 1,000 ML 42 ML IV (10:07)
--- NOTE | 2024-05-11 10:39 | PM.HP.IH.1 ---
History of Present Illness History of Present Illness Date Patient Seen: 05/11/24 Time Patient Seen: 10:39 Chief complaint: Screening Colonoscopy Narrative: Emi is a 58-year-old woman here for a screening colonoscopy. Her last one was about 10 years ago was normal. No family history of colon cancer. [facility] Medical History (Updated 05/11/24 @ 10:39 by Quentin Calderon MD) PTSD (post-traumatic stress disorder) Migraines (~2018) Breast cancer Puncture wound without foreign body of right forearm, initial encounter H/O acute bronchitis CHI (closed head injury) HSV (herpes simplex virus) infection H/O actinic keratosis Surgical History (Updated 06/29/17 @ 05:06 by Conversion Provider) History of tonsillectomy Social History Smoking Status: Never smoker alcohol intake: never Meds Home Medications and Allergies Home Medications Medication Instructions Recorded Confirmed Type albuterol sulfate 90 mcg/actuation 2 puff inhalation Q4-6H PRN 01/07/21 05/11/24 History aerosol inhaler shortness of breath or wheezing fluticasone propionate 110 2 puff inhalation BID 01/07/21 01/27/21 History mcg/actuation HFA aerosol inhaler (Flovent HFA) peg 3350-electrolytes 236 240 ml PO Q10M #4,000 mL 03/27/24 Rx gram-22.74 gram-6.74 gram-5.86 gram solution (Golytely) Allergies Allergy/AdvReac Type Severity Reaction Status Date / Time No Known Drug Allergies Allergy Verified 05/11/24 09:52 Exam Vital Signs (past 8 hours): - 05/11/24 09:59 Temperature 97.4 F L Pulse Rate 64 Respiratory Rate 16 Blood Pressure 110/67 Pulse Oximetry 99 Oxygen Delivery Method Room Air Oxygen Flow Rate 0 Oxygen Delivery Method Room Air Oxygen Flow Rate 0 Const General: healthy appearing Assessment & Plan Assessment and plan (1) Colon cancer screening: Status: Acute Plan Colonoscopy Time-Based Coding :: [TOTAL MINUTES] spent with patient and on the chart (including review of chart, obtaining history, exam, reviewing outside data, placing orders, documenting exam and treatment plan, and counseling patient) on [DATE]. PROFEE Clay Worker Document charge(s): No
--- NOTE | 2024-05-11 11:17 | PM.OP.COLON ---
Operative Date/Time/Diagnoses Date of procedure: 05/11/24 Time of procedure: 11:17 Pre-op diagnosis: Colon cancer screening Post-op diagnosis: same Procedure & Clinicians Study performed: Colonoscopy Same procedure as scheduled: Yes Surgeon: Quentin Calderon Procedure Notes Procedure in detail: Surgeon: Quentin Calderon MD Anesthesia: Laura Henley CRNA Procedure: The patient was brought to the endoscopy suite, placed in left lateral decubitus position. The patient was connected to monitoring devices. A time-out was performed. Sedation was administered. Once the patient was adequately sedated, a digital rectal exam was performed and was normal. The scope was then inserted and advanced to the cecum where the appendiceal orifice was identified and photographed. The scope was then slowly withdrawn over greater than 6 minutes. The mucosa was thoroughly inspected. No polyps were found. There was moderate sigmoid diverticulosis. The scope was retroflexed in the rectum. No other abnormalities were seen. The scope was straightened and removed. The patient was awakened and brought to recovery. Scope withdrawal time: 12 minutes Sedation time: 19 minutes EBL: 0 Findings: Sigmoid colon diverticulosis Post-procedure Recommendations: Colonoscopy in 10 years Disposition: PACU
[2024-05-11 11:20] VITALS: BP 118/57; PULSE 75; RESP 15; TEMP 36.4; O2SAT 97
[2024-05-11 11:35] VITALS: BP 105/66; PULSE 79; RESP 16; TEMP 36.4; O2SAT 98
--- NOTE | 2024-05-11 12:11 | SUR.PHASEII ---
Patient left via ambulation. She is waiting in the lobby for a friend who is also having a procedure today. That patients daughter is bringing both patients home to [facility]. Patient drank, had a snack and appeared steady on her feet.
== END 2024-05-11 12:11 | disposition home or self-care (01) ==
PROVIDERS: Family Provider Family Medicine; PCP Family Medicine; Referring Provider Surgery; Visit Provider Surgery
PROC: 0DJD8ZZ Inspection of Lower Intestinal Tract, Via Natural or Artificial Opening Endoscopic (ICD-10-PCS; CPT 45378; principal; 2024-05-11 11:00)
DX: Z12.11 Encounter for screening for malignant neoplasm of colon (principal); K57.30 Diverticulosis of large intestine without perforation or abscess without bleeding
CPT/HCPCS: 45378; J2405; J2704